=== PATIENT | female | born 1950 | race Caucasian/White ===

== ENCOUNTER → 2018-04-02 | Outpatient (CLI) | payer MEDICARE ==
--- NOTE | 2018-04-02 16:55 | US ---
EXAMINATION TYPE: US venous doppler duplex LE BI DATE OF EXAM: 04/02/2018 4:46 PM COMPARISON: NONE CLINICAL HISTORY: Edema R60.0. SIDE PERFORMED: Bilateral TECHNIQUE: The lower extremity deep venous system is examined utilizing real time linear array sonog johnson with graded compression, doppler sonography and color-flow sonography. VESSELS IMAGED: External Iliac Vein (EIV) Common Femoral Vein Deep Femoral Vein Greater Saphenous Vein * Femoral Vein Popliteal Vein Small Saphenous Vein * Proximal Calf Veins-unable to visualize (* superficial vessels) Patient unable to move her legs in any way to help examiner, extensive swelling, technically difficul t exam Right Leg: Negative for DVT Left Leg: Negative for DVT Grayscale, color doppler, spectral doppler imaging performed of the deep veins of the bilateral lowe r extremities. There is normal flow, compressibility, vascular waveforms. IMPRESSION: Suboptimal study without convincing evidence for acute DVT in either lower extremity.
== END | disposition home or self-care (01) ==
LOC: LABWHC1 16:00
PROVIDERS: ATTEND Family Medicine
DX: R60.0 Localized edema (principal)
CPT/HCPCS: 93970

== ENCOUNTER → 2018-07-12 | Outpatient (CLI) | payer MEDICARE ==
[~2018-07-12] MED LIST: SODIUM CHLORIDE 0.9% 500 ML in EMPTY BAG 1 BAG IV PRN
[2018-07-12 14:04] VITALS: BP 158/90; PULSE 109; RESP 18; TEMP 98.3
== END | disposition home or self-care (01) ==
LOC: PROCWHC3 13:55
PROVIDERS: ATTEND Psychiatry & Neurology Neurology
DX: G35 Multiple sclerosis (principal)
CPT/HCPCS: 96365; J2930

== ENCOUNTER → 2018-07-27 | Outpatient (CLI) | payer MEDICARE ==
--- NOTE | 2018-07-27 17:20 | MR ---
EXAMINATION TYPE: MR brain/cspine wo/w DATE OF EXAM: 07/27/2018 COMPARISON: Prior MR cervical spine 05/31/2010 HISTORY: Multiple sclerosis TECHNIQUE: Multiplanar, multisequence images of the brain and brainstem, cervical spine is performed without and with IV contrast, utilizing 6 mL intravenous Gadavist . FINDINGS: Diffusion weighted images demonstrate no evidence of a recent infarct or other diffusion ab normality. There is no extra-axial fluid collection. Extensive confluent and scattered hyperintensit ies are present on inversion recovery T2-weighted sequences in the pericallosal, periventricular, zee p white matter, appearance of Wong's fingers noted. There are approximately 30-40 lesions. The vent ricular system and cisternal spaces are normal in size and appearance. The brain volume is age appro priate. Midline structures demonstrate normal morphology. The craniocervical junction appears within normal limits. Post contrast images demonstrate no abnormal enhancement, there is motion on the exam. The d ural venous sinuses appear patent. The visualized sinuses are remarkable for inflammatory change in t he ethmoid air cells and the globes are intact. IMPRESSION: Findings compatible with patient's history of multiple sclerosis. Cervical spine MRI: Multilevel spondylosis is again noted with associated loss of disc height signal greatest at C4-5, C5-6 and C6-7, there is endplate discogenic marrow signal change. Cervical cord sig nal is maintained. Cervical vertebral bodies show preserved height and alignment. C2-3: Small posterior broad-based disc bulge causes slight anterior mass effect on the thecal sac. No significant foraminal encroachment or central stenosis. C3-4: Posterior extension of endplate disc complex causes minimal anterior mass effect on the thecal sac. Lateral extension of endplate disc complex causes foraminal encroachment greater on the right. N o central stenosis. C4-5: Posterior extension endplate disc complex causes mild anterior mass effect on the thecal sac. L ateral extension of endplate disc complex causes some foraminal encroachment greater on the right. No significant central stenosis C5-6: Posterior extension endplate disc complex causes mild central canal stenosis. Lateral extension of endplate disc complex causes some mild foraminal encroachment. C6-7: Posterior extension endplate disc complex contacts anterior cervical cord. Lateral extension en dplate disc complex causes some foraminal encroachment greater on the left. C7-T1: Within normal limits. IMPRESSION: Degenerative disc disease similar to prior exam.
== END | disposition home or self-care (01) ==
LOC: RADMRIMAIN 12:08
PROVIDERS: ATTEND Psychiatry & Neurology Neurology
DX: M50.30 Other cervical disc degeneration, unspecified cervical region (principal); G35 Multiple sclerosis
CPT/HCPCS: 70553; 72156; A9581

== ENCOUNTER → 2018-07-28 | Outpatient (CLI) | payer MEDICARE ==
--- NOTE | 2018-07-28 14:27 | MR ---
Thoracic spine MRI HISTORY: Multiple sclerosis Multiplanar, multisequence and postcontrast images following 6 cc Gadavist IV performed through the t horacic spine. Comparison MRI cervical spine 07/27/2018 Thoracic cord signal is normal. There is no evident spinal stenosis, foraminal encroachment, or sizab le disc herniation. Thoracic vertebral bodies show preserved height and alignment. There is multileve l spondylosis with endplate discogenic marrow signal change. Mild loss of disc height signal compatib le disc desiccation and degenerative disc disease. There is no abnormal enhancement following contrast administration. Mild spinal curvature is noted. IMPRESSION: No signal changes within the thoracic cord are evident. Mild degenerative disc disease.
== END ==
LOC: RADMRIMAIN 12:07
PROVIDERS: ATTEND Psychiatry & Neurology Neurology
DX: M51.34 Other intervertebral disc degeneration, thoracic region (principal); G35 Multiple sclerosis
CPT/HCPCS: 72157; A9581

== ENCOUNTER → 2020-09-12 | Outpatient (CLI) | payer MEDICARE ==
--- NOTE | 2020-09-12 15:31 | MR ---
EXAMINATION TYPE: MR brain wo/w con DATE OF EXAM: 09/12/2020 COMPARISON: Prior MRI brain July 27, 2018 HISTORY: MS follow up TECHNIQUE: Multiplanar, multisequence images of the brain and brainstem is performed without and with IV contras t, utilizing 7 mL intravenous Gadavist gadolinium contrast is administered intravenously. Demyelinat ing disease protocol with additional Sagittal Flair sequence performed. FINDINGS: T2 Lesions Present : Yes Approximate Number of Lesions: Difficult to accurately count due to confluent appearance Locations Identified : Greatest confluent appearance periventricular region Size of Reference Lesion(s): 1. Stable ovoid 1.4 x 1.4 x 1.3 cm lesion in right frontal periventricular region on axial image 20 a nd sagittal image 23 2. Stable 2.0 x 1.6 x 1.4 cm deep left parietal lesion on axial image 21 and sagittal image 13 Enhancing Lesion(s) Present: No T1 Hypointense Lesion(s) Present: Yes Change from Prior: Stable Diffusion weighted images demonstrate no evidence of a recent infarct or other diffusion abnormality. There is no worrisome extra-axial fluid collection. The ventricular system and cisternal spaces ar e normal in size and appearance. The brain volume is age appropriate. Midline structures demonstrate normal morphology. The craniocervical junction appears within normal limits. Post contrast images demonstrate no abnormal enhancement. The dural venous sinuses appear pa tent. [id number] mucosal thickening involving the ethmoid sinuses left greater than right redem onstrated otherwise the visualized sinuses are clear and the globes are intact. IMPRESSION: Fairly severe white matter changes redemonstrated likely on basis of patient's known mult iple sclerosis. No new or enhancing lesions are present.
== END | disposition home or self-care (01) ==
LOC: RADMRIMAIN 14:02
PROVIDERS: ATTEND Psychiatry & Neurology Neurology
DX: G35 Multiple sclerosis (principal)
CPT/HCPCS: 70553; A9585

== ENCOUNTER 2021-03-08 18:00 | Inpatient (IN) | payer MEDICARE ==
[2021-03-08] MEDS ORDERED: SODIUM CHLORIDE 0.9% 1,000 ML IV STA (18:32)
[2021-03-08] MEDS ORDERED: ACETAMINOPHEN TAB 500 MG TAB PO STA (18:48)
--- NOTE | 2021-03-08 18:50 | ED ---
General Adult HPI - General Chief complaint: Weakness Stated complaint: weakness/ams Time Seen by Provider: 03/08/21 18:29 Source: patient, EMS, RN notes reviewed, old records reviewed Mode of arrival: EMS Limitations: no limitations - History of Present Illness Initial comments: 70-year-old female presenting with 4 weeks of fatigue and generalized weakness. She states she did receive her second coronavirus vaccine and has felt this way since then. Upon arrival patient is febrile to 102.9. She complains of a productive cough with clear sputum. No abdominal pain. No vomiting or diarrhea. No dysuria or hematuria. She states she has not been eating or drinking well. - Related Data Home Medications Medication Instructions Recorded Confirmed Amphetamine Sulfate [Evekeo] 10 mg PO DAILY 07/12/18 07/12/18 Baclofen [Lioresal] 20 mg PO TID 07/12/18 07/12/18 Biotin 10,000 mcg PO DAILY 07/12/18 07/12/18 Cranberry Fruit Extract [Cranberry] 4,200 mg PO DAILY 07/12/18 07/12/18 Ergocalciferol [Vitamin D2 5,000 units PO DIRECTED 07/12/18 07/12/18 (DRISDOL)] FLUoxetine HCL [PROzac] 20 mg PO BID 07/12/18 07/12/18 Furosemide [Lasix] 20 mg PO DAILY 07/12/18 07/12/18 Lysine [l-Lysine] 500 mg PO DAILY 07/12/18 07/12/18 Multivit-Min/FA/Lycopen/Lutein 1 each PO DAILY 07/12/18 07/12/18 [Centrum Silver Tablet] Omeprazole [PriLOSEC] 20 mg PO AC-BRKFST 07/12/18 07/12/18 Ondansetron [Zofran] 4 mg PO Q12HR PRN 07/12/18 07/12/18 Polyethylene Glycol 3350 [Clearlax] 17 gm PO DIRECTED 07/12/18 07/12/18 Rebif 44 mg PO DIRECTED 07/12/18 07/12/18 Allergies Allergy/AdvReac Type Severity Reaction Status Date / Time No Known Allergies Allergy Verified 07/12/18 13:59 Review of Systems ROS Statement: Those systems with pertinent positive or pertinent negative responses have been documented in the HPI. ROS Other: All systems not noted in ROS Statement are negative. Past Medical History Additional Past Medical History / Comment(s): MS Past Surgical History: No Surgical Hx Reported Past Psychological History: No Psychological Hx Reported Smoking Status: Never smoker Past Alcohol Use History: None Reported Past Drug Use History: None Reported General Exam Limitations: no limitations General appearance: alert, in no apparent distress Head exam: Present: atraumatic, normocephalic Eye exam: Present: normal appearance, PERRL ENT exam: Present: mucous membranes dry Neck exam: Present: normal inspection. Absent: tenderness, meningismus Respiratory exam: Present: rhonchi. Absent: respiratory distress, wheezes Cardiovascular Exam: Present: normal rhythm, bradycardia GI/Abdominal exam: Present: soft. Absent: distended, tenderness, guarding, rebound Extremities exam: Present: normal inspection, normal capillary refill. Absent: pedal edema, calf tenderness Neurological exam: Present: alert, oriented X3, CN II-XII intact. Absent: motor sensory deficit Psychiatric exam: Present: normal affect, normal mood Skin exam: Present: warm, dry, intact. Absent: cyanosis, diaphoretic Course Vital Signs 03/08/21 03/08/21 18:10 20:25 Temperature 102.9 F H 101.7 F H Pulse Rate 48 L Respiratory 20 Rate Blood Pressure 148/68 O2 Sat by Pulse 95 Oximetry EKG Findings - EKG Comments: EKG Findings:: EKG: Wide complex rhythm, suspect complete heart block rate of 47, very poor baseline making interpretation difficult QRS duration 132, QTC 447. Repeat EKG obtained at 2031 with significantly improved baseline showing a complete heart block, rate of 44, QRS 122, QTC 461, wide-complex with T-wave inversion in the precordial leads. Medical Decision Making - Medical Decision Making 70-year-old female presenting for evaluation generalized weakness, cough, fever. Patient has been vaccinated against coronavirus and received her second dose 4 weeks ago. She does test positive in the emergency department. X-ray showing pneumonia and given the time course 3 is concern for a superimposed bacterial pneumonia, antibiotics are initiated. She has a normal white blood cell count, hemoglobin is stable. She has a hyponatremia with a sodium of 126. Her troponin is elevated 0.125. EKG shows a complete heart block. I did discuss case with the admitting physician Dr. Resendiz, the pulmonary branch credit counselor Dr. Rosales and the blender / cook Dr. Boudreaux, who does recommend initiating dopamine, as well as heparin. Patient is given aspirin. He'll be admitted to the ICU for close monitoring. . - Lab Data Result diagrams: 03/08/21 18:43 03/08/21 18:43 Lab Results 03/08/21 03/08/21 03/08/21 Range/Units 18:43 18:43 18:43 WBC 5.0 (3.8-10.6) k/uL RBC 3.69 L (3.80-5.40) m/uL Hgb 11.5 (11.4-16.0) gm/dL Hct 34.0 (34.0-46.0) % MCV 91.9 (80.0-100.0) fL MCH 31.1 (25.0-35.0) pg MCHC 33.9 (31.0-37.0) g/dL RDW 13.1 (11.5-15.5) % Plt Count 158 (150-450) k/uL MPV 7.6 Neutrophils % 84 % Lymphocytes % 8 % Monocytes % 7 % Eosinophils % 0 % Basophils % 0 % Neutrophils # 4.2 (1.3-7.7) k/uL Lymphocytes # 0.4 L (1.0-4.8) k/uL Monocytes # 0.4 (0-1.0) k/uL Eosinophils # 0.0 (0-0.7) k/uL Basophils # 0.0 (0-0.2) k/uL PT 9.7 (9.0-12.0) sec INR 0.9 (<1.2) APTT 21.9 L (22.0-30.0) sec Sodium 126 L (137-145) mmol/L Potassium 4.6 (3.5-5.1) mmol/L Chloride 95 L (98-107) mmol/L Carbon Dioxide 23 (22-30) mmol/L Anion Gap 8 mmol/L BUN 25 H (7-17) mg/dL Creatinine 0.54 (0.52-1.04) mg/dL Est GFR (CKD-EPI)AfAm >90 (>60 ml/min/1.73 sqM) Est GFR (CKD-EPI)NonAf >90 (>60 ml/min/1.73 sqM) Glucose 105 H (74-99) mg/dL Plasma Lactic Acid Carlos (0.7-2.0) mmol/L Calcium 8.2 L (8.4-10.2) mg/dL Magnesium 1.6 (1.6-2.3) mg/dL Total Bilirubin 0.3 (0.2-1.3) mg/dL AST 50 H (14-36) U/L ALT 18 (4-34) U/L Alkaline Phosphatase 79 (38-126) U/L Troponin I (0.000-0.034) ng/mL Total Protein 5.6 L (6.3-8.2) g/dL Albumin 3.1 L (3.5-5.0) g/dL Influenza Type A (PCR) (Not Detectd) Influenza Type B (PCR) (Not Detectd) RSV (PCR) (Not Detectd) SARS-CoV-2 (PCR) (Not Detectd) 03/08/21 03/08/21 03/08/21 Range/Units 18:43 18:43 19:30 WBC (3.8-10.6) k/uL RBC (3.80-5.40) m/uL Hgb (11.4-16.0) gm/dL Hct (34.0-46.0) % MCV (80.0-100.0) fL MCH (25.0-35.0) pg MCHC (31.0-37.0) g/dL RDW (11.5-15.5) % Plt Count (150-450) k/uL MPV Neutrophils % % Lymphocytes % % Monocytes % % Eosinophils % % Basophils % % Neutrophils # (1.3-7.7) k/uL Lymphocytes # (1.0-4.8) k/uL Monocytes # (0-1.0) k/uL Eosinophils # (0-0.7) k/uL Basophils # (0-0.2) k/uL PT (9.0-12.0) sec INR (<1.2) APTT (22.0-30.0) sec Sodium (137-145) mmol/L Potassium (3.5-5.1) mmol/L Chloride (98-107) mmol/L Carbon Dioxide (22-30) mmol/L Anion Gap mmol/L BUN (7-17) mg/dL Creatinine (0.52-1.04) mg/dL Est GFR (CKD-EPI)AfAm (>60 ml/min/1.73 sqM) Est GFR (CKD-EPI)NonAf (>60 ml/min/1.73 sqM) Glucose (74-99) mg/dL Plasma Lactic Acid Carlos 1.0 (0.7-2.0) mmol/L Calcium (8.4-10.2) mg/dL Magnesium (1.6-2.3) mg/dL Total Bilirubin (0.2-1.3) mg/dL AST (14-36) U/L ALT (4-34) U/L Alkaline Phosphatase (38-126) U/L Troponin I 0.120 H* (0.000-0.034) ng/mL Total Protein (6.3-8.2) g/dL Albumin (3.5-5.0) g/dL Influenza Type A (PCR) Not Detected (Not Detectd) Influenza Type B (PCR) Not Detected (Not Detectd) RSV (PCR) Not Detected (Not Detectd) SARS-CoV-2 (PCR) Detected A (Not Detectd) Critical Care Time Critical Care Time: Yes Total Critical Care Time: 35 Disposition Clinical Impression: Dehydration, Hyponatremia, Pneumonia, COVID-19, Complete heart block Disposition: HOME SELF-CARE Condition: Serious Is patient prescribed a controlled substance at d/c from ED?: No Referrals: Rome Cook DO [Primary Care Provider] - 1-2 days Decision to Admit Reason: Admit from EC Decision Date: 03/08/21 Decision Time: 21:06
[2021-03-08 19:09] LABS: Basophils % (A) 0 %; Eosinophils % (A) 0 %; HGB 11.5 gm/dL (11.4-16.0); Lymphocytes # (A) 0.4 k/uL (1.0-4.8); Lymphocytes % (A) 8 %; MCH 31.1 pg (25.0-35.0); MCHC 33.9 g/dL (31.0-37.0); MCV 91.9 fL (80.0-100.0); Mean Platelet Volume 7.6; Monocytes # (A) 0.4 k/uL (0-1.0); Monocytes % (A) 7 %; Neutrophils # (A) 4.2 k/uL (1.3-7.7); Neutrophils % (A) 84 %; Platelet Count 158 k/uL (150-450); RBC 3.69 m/uL (3.80-5.40); RDW 13.1 % (11.5-15.5)
[2021-03-08 19:13] LABS: ALT 18 U/L (4-34); AST 50 U/L (14-36); African American GFR (CKD) >90 (>60 ml/min/1.73 sqM); Albumin 3.1 g/dL (3.5-5.0); Alkaline Phosphatase 79 U/L (38-126); Anion Gap 8 mmol/L; Blood Urea Nitrogen 25 mg/dL (7-17); Calcium 8.2 mg/dL (8.4-10.2); Carbon Dioxide 23 mmol/L (22-30); Chloride 95 mmol/L (98-107); Glucose 105 mg/dL (74-99); Magnesium 1.6 mg/dL (1.6-2.3); Non-African American GFR(CKD) >90 (>60 ml/min/1.73 sqM); Potassium 4.6 mmol/L (3.5-5.1); Sodium 126 mmol/L (137-145); Total Bilirubin 0.3 mg/dL (0.2-1.3); Total Protein 5.6 g/dL (6.3-8.2)
--- NOTE | 2021-03-08 19:34 | XR ---
EXAMINATION TYPE: XR chest 2V DATE OF EXAM: 03/08/2021 COMPARISON: NONE HISTORY: Weakness TECHNIQUE: 2 views FINDINGS: There is no heart failure.. Costophrenic angles are clear. There is some coarsening of inte rstitial markings in the lower lobes. There are chest leads. There is There is some mild airspace infiltrate behind the heart in the left lower lobe. IMPRESSION: Mild left lower lobe pneumonia. Normal heart. No heart failure.
[2021-03-08 19:42] LABS: INR 0.9 (<1.2)
[2021-03-08 19:43] LABS: Partial Thromboplastin Time 21.9 sec (22.0-30.0); Prothrombin Time 9.7 sec (9.0-12.0)
[2021-03-08] MEDS ORDERED: AZITHROMYCIN 500 MG in SODIUM CHLORIDE 0.9% 250 ML IVPB STA (19:54)
[2021-03-08] MEDS ORDERED: cefTRIAXone IN SWFI 1,000 MG/10 ML SYRINGE IVP STA (19:54)
[2021-03-08] MEDS ORDERED: ASPIRIN 325 MG TAB PO STA (20:38)
[2021-03-08] MEDS ORDERED: HEPARIN SODIUM 1,000 UN/ML (10ML VL) IV ONE (20:44)
[2021-03-08] MEDS ORDERED: DOPamine DRIP 800 MG in DEXTROSE/WATER 1 250ML.BAG IV ONE (20:44)
[2021-03-08] MEDS ORDERED: HEPARIN SODIUM 1,000 UN/ML (10ML VL) IV PRN (20:44)
[2021-03-08] MEDS ORDERED: NALOXONE 0.4 MG/ML 1 ML VIAL IV PRN (20:45)
[2021-03-08] MEDS ORDERED: ACETAMINOPHEN TAB 325 MG TAB PO PRN (20:45)
[2021-03-08] MEDS: SODIUM CHLORIDE 0.9% 1,000 ML IV SCH (20:58)
[2021-03-08] MEDS: HEPARIN SOD,PORK IN 0.45% NACL 25,000 UNIT in 0.45% NACL 1 250ML.BAG IV SCH (21:45)
[2021-03-08 22:25] LABS: Glucose,Whole Blood 116 mg/dL (75-99)
[2021-03-08] MEDS: PANTOPRAZOLE 40 MG/10 ML VIAL IV SCH (23:00)
[2021-03-08 23:56] LABS: Appearance,Urine Clear (Clear); Bilirubin,Urine Negative (Negative); Blood,Urine Negative (Negative); Color,Urine Yellow; Glucose,Urine (UA) Negative (Negative); Ketones,Urine 1+ (Negative); Leukocyte Esterase,Urine Negative (Negative); Mucus,Urine Rare /hpf; Nitrite,Urine Negative (Negative); PH, Urine 5.5 (5.0-8.0); Protein,Urine 1+ (Negative); RBC,Urine 1 /hpf (0-5); Squamous Epithelial Cell,Urine <1 /hpf (0-4); Urobilinogen,Urine <2.0 mg/dL (<2.0); WBC,Urine 1 /hpf (0-5)
[2021-03-09] MEDS: MAGNESIUM SULFATE-D5W PMX 1 GM in DEXTROSE/WATER 1 100ML.BAG IVPB SCH ×2 (00:31→01:41)
[2021-03-09 04:41] LABS: Basophils % (A) 0 %; Eosinophils # (A) 0.1 k/uL (0-0.7); Eosinophils % (A) 2 %; HCT 34.8 % (34.0-46.0); HGB 12.2 gm/dL (11.4-16.0); Lymphocytes # (A) 0.6 k/uL (1.0-4.8); Lymphocytes % (A) 11 %; MCH 32.5 pg (25.0-35.0); MCV 92.7 fL (80.0-100.0); Mean Platelet Volume 7.4; Monocytes # (A) 0.3 k/uL (0-1.0); Monocytes % (A) 6 %; Neutrophils # (A) 4.1 k/uL (1.3-7.7); Neutrophils % (A) 80 %; Platelet Count 146 k/uL (150-450); RBC 3.76 m/uL (3.80-5.40); RDW 12.5 % (11.5-15.5); WBC 5.1 k/uL (3.8-10.6)
[2021-03-09 05:11] LABS: African American GFR (CKD) >90 (>60 ml/min/1.73 sqM); Anion Gap 6 mmol/L; Blood Urea Nitrogen 18 mg/dL (7-17); C Reactive Protein 6.4 mg/dL (<1.0); Carbon Dioxide 24 mmol/L (22-30); Chloride 103 mmol/L (98-107); Glucose 112 mg/dL (74-99); LDH 878 U/L (313-618); Magnesium 2.5 mg/dL (1.6-2.3); Non-African American GFR(CKD) >90 (>60 ml/min/1.73 sqM); Sodium 133 mmol/L (137-145)
[2021-03-09 05:12] LABS: D-Dimer 0.29 mg/L FEU (<0.60); INR 0.9 (<1.2)
[2021-03-09] MEDS ORDERED: POTASSIUM CHLORIDE ER 20 MEQ TAB.ER PO STA (05:34)
[2021-03-09] MEDS: SODIUM CHLORIDE 0.9% 1,000 ML IV SCH ×3 (05:54→21:02)
[2021-03-09 06:08] LABS: T4, Free (Free Thyroxine) 1.28 ng/dL (0.78-2.19)
--- NOTE | 2021-03-09 07:34 | CONS ---
CONSULTATION This is a 70-year-old lady without significant past medical history other than probably multiple sclerosis, which seems to also be mild based on the history and the chart that I have reviewed. She came in with nearly 3-4 weeks of fatigue and generalized weakness. She apparently has taken her 2nd dose of soto virus vaccine probably a week ago. When she came in, she was febrile at 102.9 with a productive cough. Sputum apparently was clear. While she was here in the hospital, she was found to have a heart rate of about 42 beats per minute and there is a question of AV block. I am seeing her in this regard. She does have a left lower lobe pneumonia as well. She has underlying right bundle branch block pattern with a QRS interval of about 124 milliseconds. She is at the time of my evaluation, which I did only at the door and I did not do a full physical examination at all. She is in sinus rhythm with what seems to be a second-degree heart block, Wenckebach with a gradually prolonging p.r.n. interval and some PACs. She has underlying nonspecific IVCD of RBBB type with some repolarization abnormality. Heart rate is about 40s. Patient appears to be hemodynamically stable. The last heart rate when I saw her was about 48 beats per minute. She is hemodynamically stable with a blood pressure of about 140/70. PAST MEDICAL HISTORY: This is remarkable for multiple sclerosis, details are unclear. She has no evidence of any significant surgical history on the chart. She is not a smoker. MEDICATIONS: Medications at home include: Zofran, Prilosec, and she also takes some baclofen and Lasix 20 mg daily. ALLERGIES: None. Please review the physical exam from the critical care note. IMPRESSION: 1. Second-degree heart block, probably Wenckebach with a QRS that is mildly increased. 2. Left lower lobe pneumonia. 3. Status post second dose of Covid vaccine a week or so ago. RECOMMENDATIONS: From a cardiac standpoint, I would not recommend any intervention. We will continue to monitor and observe. Obtain a thyroid function test level as well and echocardiogram. No intervention is necessary for her heart rate at this time, but we will continue to monitor closely. If she demonstrates a high-grade AV block, we will consider pacemaker, but for now, no intervention is necessary. MMODL / IJN: [id number] /
--- NOTE | 2021-03-09 08:15 | P.CNPUL ---
History of Present Illness Consult date: 03/09/21 Requesting physician: Patrick Resendiz Reason for consult: other (Critical care management) Chief complaint: Weakness, dehydration History of present illness: This is a very pleasant 70-year-old female patient who follows with Dr. Cook as her primary care provider. She has a history of multiple sclerosis, hypertension, depression. She presented to the emergency room yesterday after a 3-4 week history of generalized weakness and fatigue. She received her second dose of the soto virus vaccine approximately at that same time and has not felt well since. She presented to the emergency room with a temperature 102.9. Productive cough of clear sputum. No nausea, vomiting or diarrhea. She does states her appetite has been poor. She states she generally can't swallow well. Feeds herself. She is quite limited mobility fierro. Mainly is from bed to recliner only at home. She has caregivers that come to the house twice a day. She has a son who lives with her. X-ray does show coarse interstitial markings bilaterally with some mild airspace infiltrate in the left lower lobe. White count 5.1. Hemoglobin 12.2. Platelet count 146. Lymphocytes 0.6. D-dimer 0.29. Sodium 133. Potassium 4.0. Creatinine 0.53. Troponin 0.120. LDH 874. C-reactive protein 6.4. TSH 0.675. Free T4 1 0.28. Soto virus positive. EKG reveals evidence of complete heart block with anterolateral ischemia. Jugular rate mainly in the 40s and low 50s. He was initiated on a dopamine drip at 5 mcg/kg/m. Heparin drip per weight base protocol. 0.9 normal saline at 130 ML's per hour. She received ceftriaxone and azithromycin 1 yesterday. She is seen today in consultation in the intensive care unit. She is currently awake and alert in no acute distress. She denies any worsening shortness of breath, cough or congestion. She denies any chest pain. She expresses desire to be a DO NOT RESUSCITATE/DO NOT INTUBATE CODE STATUS. She also is requesting to be home as soon as possible. She is currently afebrile. Echocardiogram pending. Review of Systems REVIEW OF SYSTEMS: CONSTITUTIONAL: Positive for weakness, fatigue, dehydration and a febrile illness. EYES: Denies change in vision. EARS, NOSE, MOUTH, THROAT: Denies headaches, denies sore throat. CARDIOVASCULAR: Denies chest pain, palpitations or syncopal episodes. RESPIRATORY: Suggestive for shortness of breath, cough, congestion no hemoptysis. GASTROINTESTINAL: Denies change in appetite, denies abdominal pain GENITOURINARY: Denies hematuria, denies infections. MUSKULOSKELETAL: Denies pain, denies swelling. INTEGUMENTARY: Denies rash, denies eczema. NEUROLOGICAL: Denies recent memory loss, no recent seizure activity. PSYCHIATRIC: Denies anxiety, denies depression. HEMATOLOGIC/LYMPHATIC: Denies anemia, denies enlarged lymph nodes. Past Medical History Additional Past Medical History / Comment(s): MS, Pt. states she broke her L arm approximately 2 yrs ago R/T fall and broke L foot approximately R/T 5 years ago History of Any Multi-Drug Resistant Organisms: None Reported Past Surgical History: No Surgical Hx Reported Past Anesthesia/Blood Transfusion Reactions: No Reported Reaction Past Psychological History: No Psychological Hx Reported Smoking Status: Never smoker Past Alcohol Use History: None Reported Past Drug Use History: None Reported Medications and Allergies Home Medications Medication Instructions Recorded Confirmed Type FLUoxetine HCL [PROzac] 20 mg PO DAILY 07/12/18 03/08/21 History Furosemide [Lasix] 20 mg PO DAILY 07/12/18 03/08/21 History Polyethylene Glycol 3350 [Clearlax] 17 gm PO DAILY PRN 07/12/18 03/08/21 History Baclofen 20 mg PO HS PRN 03/08/21 03/08/21 History Baclofen [Lioresal] 10 mg PO BID@0700,1200 PRN 03/08/21 03/08/21 History Biotin 5,000 mcg PO DAILY 03/08/21 03/08/21 History Cholecalciferol (Vitamin D3) 125 mcg PO MOWEFR 03/08/21 03/08/21 History [Vitamin D3 (5000 Iu)] Dextroamphetamine/Amphetamine 10 mg PO DAILY PRN 03/08/21 03/08/21 History [Adderall] Docusate [Colace] 100 mg PO DAILY 03/08/21 03/08/21 History Irbesartan [Avapro] 75 mg PO DAILY 03/08/21 03/08/21 History NIFEdipine [NIFEdipine ER] 30 mg PO DAILY 03/08/21 03/08/21 History rOPINIRole HCL [Requip] 0.25 - 0.5 mg PO HS PRN 03/08/21 03/08/21 History Allergies Allergy/AdvReac Type Severity Reaction Status Date / Time No Known Allergies Allergy Verified 03/08/21 21:02 Physical Exam Vitals: Vital Signs Temp Pulse Pulse Resp BP Pulse Ox 03/09/21 07:00 51 L 13 144/70 94 L 03/09/21 06:30 50 L 22 144/68 94 L 03/09/21 06:00 50 L 16 148/70 95 03/09/21 05:30 47 L 18 147/63 96 03/09/21 05:00 46 L 19 146/57 95 03/09/21 04:30 45 L 18 140/65 96 03/09/21 04:00 43 L 16 142/73 94 L 03/09/21 03:30 42 L 17 136/58 92 L 03/09/21 03:00 41 L 15 129/64 93 L 03/09/21 02:30 39 L 21 143/62 94 L 03/09/21 02:00 41 L 17 142/66 94 L 03/09/21 01:30 42 L 16 146/65 94 L 03/09/21 01:00 42 L 20 130/73 94 L 03/09/21 00:30 39 L 12 136/63 94 L 03/09/21 00:00 42 L 20 132/58 94 L 03/08/21 23:30 41 L 17 129/63 95 03/08/21 23:00 98.4 F 46 L 20 139/66 95 03/08/21 21:50 100.8 F H 43 L 20 136/60 96 03/08/21 20:59 42 L 20 135/59 98 03/08/21 20:25 101.7 F H 03/08/21 20:00 44 L 20 148/65 98 03/08/21 19:00 44 L 18 145/62 95 03/08/21 18:20 42 L 20 03/08/21 18:10 102.9 F H 48 L 20 148/68 95 Intake and Output 03/08/21 03/09/21 03/09/21 22:59 06:59 14:59 Intake Total 1433.217 130 Output Total 1950 85 Balance -516.783 45 Intake: IV 1360 130 Azithromycin 500 mg In 250 Sodium Chloride 0.9% 250 ml @ 250 mls/hr IVPB ONCE [facility] Rx#:[id number] Magnesium Sulfate-D5w Pmx 200 1 gm In Dextrose/Water 1 100ml.bag @ 100 mls/hr IVPB Q1H [facility] Rx#: [id number] Sodium Chloride 0.9% 1, 910 130 000 ml @ 130 mls/hr IV . Q7H42M [facility] Rx#:[id number] Intake, IV Titration 73.217 0 Amount DOPamine DRIP 800 mg In 8.889 Dextrose/Water 1 250ml. bag @ 2.5 MCG/KG/MIN 3. 083 mls/hr IV .Q24H [facility] Rx#:[id number] Heparin Sod,Pork in 0.45% 64.328 0 NaCl 25,000 unit In 0.45 % NaCl 1 250ml.bag @ 12 UNITS/KG/HR 7.893 mls/hr IV .Q24H [facility] Rx#: [id number] Output: Urine 1950 85 Other: Voiding Method Indwelling Catheter Weight 65.771 kg 69.4 kg GENERAL EXAM: Alert, pleasant 70-year-old female patient, weak, debilitated, comfortable in no apparent distress. HEAD: Normocephalic. EYES: Normal reaction of pupils, equal size. NOSE: Clear with pink turbinates. THROAT: No erythema or exudates. NECK: No masses, no JVD. CHEST: No chest wall deformity. LUNGS: Equal air entry with few scattered rhonchi bilaterally. CVS: S1 and S2 normal with no audible murmur, regular rhythm. Bradycardic. ABDOMEN: No hepatosplenomegaly, normal bowel sounds, no guarding or rigidity. SPINE: No scoliosis or deformity SKIN: No rashes CENTRAL NERVOUS SYSTEM: Generalized weakness, motor extremity weakness secondary to multiple sclerosis. No focal deficits, tone is normal in all 4 extremities. EXTREMITIES: There is no peripheral edema. No clubbing, no cyanosis. Peripheral pulses are intact. Results - Laboratory Findings CBC and BMP: 03/09/21 04:13 03/09/21 04:13 PT/INR, D-dimer PT 10.0 sec (9.0-12.0) 03/09/21 04:13 INR 0.9 (<1.2) 03/09/21 04:13 D-Dimer 0.29 mg/L FEU (<0.60) 03/09/21 04:13 Abnormal lab findings: Abnormal Labs 03/08/21 03/08/21 03/08/21 18:43 18:43 18:43 RBC 3.69 L Plt Count Lymphocytes # 0.4 L APTT 21.9 L Sodium 126 L Chloride 95 L BUN 25 H Glucose 105 H POC Glucose (mg/dL) Calcium 8.2 L Magnesium AST 50 H Lactate Dehydrogenase Troponin I C-Reactive Protein Total Protein 5.6 L Albumin 3.1 L Urine Protein Urine Ketones Urine Mucus SARS-CoV-2 (PCR) 03/08/21 03/08/21 03/08/21 18:43 19:30 22:23 RBC Plt Count Lymphocytes # APTT Sodium Chloride BUN Glucose POC Glucose (mg/dL) 116 H Calcium Magnesium AST Lactate Dehydrogenase Troponin I 0.120 H* C-Reactive Protein Total Protein Albumin Urine Protein Urine Ketones Urine Mucus SARS-CoV-2 (PCR) Detected A 03/08/21 03/09/21 03/09/21 23:35 04:13 04:13 RBC 3.76 L Plt Count 146 L Lymphocytes # 0.6 L APTT Sodium 133 L Chloride BUN 18 H Glucose 112 H POC Glucose (mg/dL) Calcium 8.0 L Magnesium 2.5 H AST Lactate Dehydrogenase 878 H Troponin I C-Reactive Protein 6.4 H Total Protein Albumin Urine Protein 1+ H Urine Ketones 1+ H Urine Mucus Rare H SARS-CoV-2 (PCR) 03/09/21 04:13 RBC Plt Count Lymphocytes # APTT 124.0 H* Sodium Chloride BUN Glucose POC Glucose (mg/dL) Calcium Magnesium AST Lactate Dehydrogenase Troponin I C-Reactive Protein Total Protein Albumin Urine Protein Urine Ketones Urine Mucus SARS-CoV-2 (PCR) - Diagnostic Findings Chest x-ray: image reviewed Assessment and Plan Assessment: 1 COVID-19 infection with generalized weakness, fatigue, poor appetite, dehydration 2 Acute hypoxic respiratory failure secondary to COVID-19 pneumonia 3 Complete heart block versus second-degree heart block with bradycardia, currently on dopamine 4 Troponin leak 5 hyponatremia, improving current sodium 133. 6 Elevated inflammatory markers secondary to COVID-19. 7 Multiple sclerosis with limited mobility 8 History of depression 9 Hypertension Plan: The patient was seen and evaluated by Dr. Rosales Chest x-ray, EKG, labs reviewed Add dexamethasone, vitamin supplements Continue heparin drip Echocardiogram pending Follow-up troponin Check a pro-calcitonin Follow-up chest x-ray, inflammatory markers in a.m. We will continue to follow make further recommendations based on her clinical status Time with Patient: Greater than 30
--- NOTE | 2021-03-09 08:28 | XR ---
EXAMINATION TYPE: XR chest 1V DATE OF EXAM: 03/09/2021 COMPARISON: 03/08/2021 INDICATION: Short of breath TECHNIQUE: Single frontal view of the chest is obtained. FINDINGS: The heart size is normal. The pulmonary vasculature is normal. Mild infiltrates present in the right lower lobe. Improving left lower lobe infiltrate is present. IMPRESSION: 1. Improving bibasilar infiltrates. Persistent infiltrate at the right base. Findings can be compatib le with atypical pneumonia.
[2021-03-09] MEDS: PANTOPRAZOLE 40 MG/10 ML VIAL IV SCH (09:33)
[2021-03-09] MEDS: ASCORBIC ACID 500 MG TAB PO SCH (09:34)
[2021-03-09] MEDS: CHOLECALCIFEROL 25 MCG (1000 IU) TABLET PO SCH (09:34)
[2021-03-09] MEDS: DEXAMETHASONE SOD PHOSPHATE 10 MG/ML 1 ML VIAL IV SCH (09:34)
[2021-03-09] MEDS: ZINC SULFATE 220 MG CAP PO SCH (09:34)
[2021-03-09] MEDS ORDERED: NON FORMULARY DRUG (Dextroamphetamine/Amphetamine [Adderall] 10 MG Tablet) PO PRN (09:40)
[2021-03-09] MEDS: FLUoxetine HCL 20 MG CAP PO SCH (12:27)
[2021-03-09] MEDS: BACLOFEN 10 MG TAB PO PRN ×2 (12:27→21:02)
--- NOTE | 2021-03-09 13:54 | ECHOF ---
Referral Reason:Heart block MEASUREMENTS -------- HEIGHT: 167.6 cm WEIGHT: 69.4 kg BP: 148/70 RVIDd: 3.4 cm (< 3.3) IVSd: 1.3 cm (0.6 - 1.1) LVIDd: 5.2 cm (3.9 - 5.3) LVPWd: 1.2 cm (0.6 - 1.1) IVSs: 1.9 cm LVIDs: 4.2 cm LVPWs: 1.7 cm LA Diam: 3.1 cm (2.7 - 3.8) LAESV Index (A-L): 27.00 ml/m Ao Diam: 3.3 cm (2.0 - 3.7) AV Cusp: 2.2 cm (1.5 - 2.6) MV EXCURSION: 17.354 mm (> 18.000) MV EF SLOPE: 168 mm/s (70 - 150) EPSS: 0.5 cm MV E Tuan: 1.46 m/s MV DecT: 130 ms MV A Tuan: 0.95 m/s MV E/A Ratio: 1.54 AV maxP.39 mmHg AV meanP.86 mmHg RAP: 15.00 mmHg RVSP: 47.74 mmHg FINDINGS -------- This was a technically adequate study. The left ventricular size is normal. There is borderline concentric left ventricular hypertrophy. Overall left ventricular systolic function is mild-moderately impaired with, an EF between 40 - 45 % . Mid anteroseptal LV wall motion is hypokinetic. Apical anterior LV wall motion is hypokinetic. Apical septum LV wall motion is hypokinetic. The right ventricle is mildly enlarged. Normal LA size by volume 22+/-6 ml/m2. The right atrium is normal in size. Interatrial and interventricular septum intact. There is mild aortic regurgitation. Mild mitral annular calcification present. Mild mitral regurgitation is present. Mild tricuspid regurgitation present. There is moderate pulmonary hypertension. The right ventric ular systolic pressure, as measured by Doppler, is 47.74mmHg. The pulmonic valve was not well visualized. The aortic root size is normal. Normal inferior vena cava with less than 50% inspiratory collapse consistent with estimated right atr ial pressure of 15 mmHg. CONCLUSIONS -------- 1. The left ventricular size is normal. 2. There is borderline concentric left ventricular hypertrophy. 3. Apical anterior LV wall motion is hypokinetic. 4. Apical septum LV wall motion is hypokinetic. 5. The right ventricle is mildly enlarged. 6. There is mild aortic regurgitation. 7. Mild mitral annular calcification present. 8. Mild mitral regurgitation is present. 9. Mild tricuspid regurgitation present. 10. There is moderate pulmonary hypertension. 11. The right ventricular systolic pressure, as measured by Doppler, is 47.74mmHg. 12. Normal inferior vena cava with less than 50% inspiratory collapse consistent with estimated right atrial pressure of 15 mmHg. GAME PROGRAMMER: Kaylin Ho RDCS
--- NOTE | 2021-03-09 16:53 | P.HPIM ---
History of Present Illness H&P Date: 03/09/21 Chief Complaint: Generalized weakness Ms. Figueroa is a 70-year-old female with a past medical history of multiple sclerosis, hypertension coming into the hospital with a chief complaint of generalized weakness and fatigue. Patient states that she received her second dose of soto virus vaccine 1 month back and since then she continued to have generalized weakness and fatigue. She thought her symptoms would resolve but progressively worsening that she came into the hospital for further evaluation. Patient denies having any fevers chills or rigors. She complains of cough that is productive in nature with clear sputum. She denies having any abdominal pain nausea vomiting or diarrhea. No change in her sense of taste or smell. Patient denies having any dysuria or hematuria. Patient states that she has been not eating or drinking well for the past 3-4 weeks. Patient mentions that she has caregivers at home and her caregiver was tested positive for soto virus. In the ER at the time of admission patient was found to have a fever of 102.9, heart rate of 48, respiratory rate 20, blood pressure 140/68, saturating at 95% on room air. She had a chest x-ray showing coarse interstitial markings bilateral with left lobe infiltrate. Patient had an EKG showing complete heart block with anterolateral ischemia. So the patient was started on dopamine drip and heparin drip and admitted to the ICU. Patient also received 1 dose of ceftriaxone and Zithromax. She is currently being monitored in the ICU. Review of Systems REVIEW OF SYSTEMS: CONSTITUTIONAL: Generalized weakness and fatigue HEENT: No recent visual problems or hearing problems. Denied any sore throat. CARDIOVASCULAR: No chest pain, orthopnea, PND, no palpitations, no syncope. PULMONARY: Mild cough with productive white sputum GASTROINTESTINAL: No diarrhea, no nausea, no vomiting, no abdominal pain. NEUROLOGICAL: No focal weakness, normocephalic consciousness HEMATOLOGICAL: Denies any bleeding or petechiae. GENITOURINARY: Denies any burning micturition, frequency, or urgency. MUSCULOSKELETAL/RHEUMATOLOGICAL: Multiple joint osteoarthritis ENDOCRINE: Denies any polyuria or polydipsia. The rest of the 14-point review of systems is negative Past Medical History Additional Past Medical History / Comment(s): MS, Pt. states she broke her L arm approximately 2 yrs ago R/T fall and broke L foot approximately R/T 5 years ago History of Any Multi-Drug Resistant Organisms: None Reported Past Surgical History: No Surgical Hx Reported Past Anesthesia/Blood Transfusion Reactions: No Reported Reaction Past Psychological History: No Psychological Hx Reported Smoking Status: Never smoker Past Alcohol Use History: None Reported Past Drug Use History: None Reported Medications and Allergies Home Medications Medication Instructions Recorded Confirmed Type FLUoxetine HCL [PROzac] 20 mg PO DAILY 07/12/18 03/08/21 History Furosemide [Lasix] 20 mg PO DAILY 07/12/18 03/08/21 History Polyethylene Glycol 3350 [Clearlax] 17 gm PO DAILY PRN 07/12/18 03/08/21 History Baclofen 20 mg PO HS PRN 03/08/21 03/08/21 History Baclofen [Lioresal] 10 mg PO BID@0700,1200 PRN 03/08/21 03/08/21 History Biotin 5,000 mcg PO DAILY 03/08/21 03/08/21 History Cholecalciferol (Vitamin D3) 125 mcg PO MOWEFR 03/08/21 03/08/21 History [Vitamin D3 (5000 Iu)] Dextroamphetamine/Amphetamine 10 mg PO DAILY PRN 03/08/21 03/08/21 History [Adderall] Docusate [Colace] 100 mg PO DAILY 03/08/21 03/08/21 History Irbesartan [Avapro] 75 mg PO DAILY 03/08/21 03/08/21 History NIFEdipine [NIFEdipine ER] 30 mg PO DAILY 03/08/21 03/08/21 History rOPINIRole HCL [Requip] 0.25 - 0.5 mg PO HS PRN 03/08/21 03/08/21 History Allergies Allergy/AdvReac Type Severity Reaction Status Date / Time No Known Allergies Allergy Verified 03/08/21 21:02 Physical Exam Vitals: Vital Signs Temp Pulse Pulse Resp BP Pulse Ox 03/09/21 15:00 44 L 20 162/74 94 L 03/09/21 14:30 44 L 20 156/69 85 L 03/09/21 14:00 42 L 13 149/69 87 L 03/09/21 13:30 41 L 19 93 L 03/09/21 13:00 46 L 24 150/68 93 L 03/09/21 12:30 44 L 26 H 144/62 92 L 03/09/21 12:00 98.2 F 45 L 15 138/59 91 L 03/09/21 11:30 45 L 11 L 140/61 92 L 03/09/21 11:00 45 L 7 L 140/64 92 L 03/09/21 10:30 46 L 20 146/69 91 L 03/09/21 10:00 47 L 20 148/68 94 L 03/09/21 09:30 47 L 23 140/68 92 L 03/09/21 09:00 46 L 21 136/67 93 L 03/09/21 08:30 48 L 23 140/63 92 L 03/09/21 08:00 98.2 F 49 L 23 130/64 97 03/09/21 07:00 51 L 13 144/70 94 L 03/09/21 06:30 50 L 22 144/68 94 L 03/09/21 06:00 50 L 16 148/70 95 03/09/21 05:30 47 L 18 147/63 96 03/09/21 05:00 46 L 19 146/57 95 03/09/21 04:30 45 L 18 140/65 96 03/09/21 04:00 43 L 16 142/73 94 L 03/09/21 03:30 42 L 17 136/58 92 L 03/09/21 03:00 41 L 15 129/64 93 L 03/09/21 02:30 39 L 21 143/62 94 L 03/09/21 02:00 41 L 17 142/66 94 L 03/09/21 01:30 42 L 16 146/65 94 L 03/09/21 01:00 42 L 20 130/73 94 L 03/09/21 00:30 39 L 12 136/63 94 L 03/09/21 00:00 42 L 20 132/58 94 L 03/08/21 23:30 41 L 17 129/63 95 03/08/21 23:00 98.4 F 46 L 20 139/66 95 03/08/21 21:50 100.8 F H 43 L 20 136/60 96 03/08/21 20:59 42 L 20 135/59 98 03/08/21 20:25 101.7 F H 03/08/21 20:00 44 L 20 148/65 98 03/08/21 19:00 44 L 18 145/62 95 03/08/21 18:20 42 L 20 03/08/21 18:10 102.9 F H 48 L 20 148/68 95 Intake and Output 03/09/21 03/09/21 03/09/21 06:59 14:59 22:59 Intake Total 4618.916 6264 130 Output Total 1950 535 150 Balance -516.783 505 -20 Intake: IV 1360 1040 130 Azithromycin 500 mg In 250 Sodium Chloride 0.9% 250 ml @ 250 mls/hr IVPB ONCE STA Rx#:[id number] Magnesium Sulfate-D5w Pmx 200 1 gm In Dextrose/Water 1 100ml.bag @ 100 mls/hr IVPB Q1H [facility] Rx#: [id number] Sodium Chloride 0.9% 1, 910 1040 130 000 ml @ 130 mls/hr IV . Q7H42M [facility] Rx#:[id number] Intake, IV Titration 73.217 0 Amount DOPamine DRIP 800 mg In 8.889 Dextrose/Water 1 250ml. bag @ 2.5 MCG/KG/MIN 3. 083 mls/hr IV .Q24H [facility] Rx#:[id number] Heparin Sod,Pork in 0.45% 64.328 0 NaCl 25,000 unit In 0.45 % NaCl 1 250ml.bag @ 12 UNITS/KG/HR 7.893 mls/hr IV .Q24H [facility] Rx#: [id number] Output: Urine 1950 535 150 Other: Voiding Method Indwelling Catheter Indwelling Catheter Indwelling Catheter Weight 69.4 kg PHYSICAL EXAMINATION: GENERAL: Elderly female lying in bed appears to be no acute distress. She is currently being monitored in the ICU. HEENT: Pupils are round and equally reacting to light. EOMI. No scleral icterus. No conjunctival pallor. Normocephalic, atraumatic. No pharyngeal erythema. No thyromegaly. CARDIOVASCULAR: Bradycardia. PULMONARY: Bilateral breath sounds are positive. Scattered rhonchi in the lower lung bases ABDOMEN: Soft, nontender, nondistended, normoactive bowel sounds. No palpable organomegaly. MUSCULOSKELETAL: No joint swelling or deformity. EXTREMITIES: No cyanosis, clubbing, or pedal edema. NEUROLOGICAL: Gross neurological examination did not reveal any focal deficits. SKIN: No rashes. Results CBC & Chem 7: 03/09/21 04:13 03/09/21 04:13 Labs: Abnormal Lab Results - Last 24 Hours (Table) 03/08/21 03/08/21 03/08/21 Range/Units 18:43 18:43 18:43 RBC 3.69 L (3.80-5.40) m/uL Plt Count (150-450) k/uL Lymphocytes # 0.4 L (1.0-4.8) k/uL APTT 21.9 L (22.0-30.0) sec Sodium 126 L (137-145) mmol/L Chloride 95 L (98-107) mmol/L BUN 25 H (7-17) mg/dL Glucose 105 H (74-99) mg/dL POC Glucose (mg/dL) (75-99) mg/dL Calcium 8.2 L (8.4-10.2) mg/dL Magnesium (1.6-2.3) mg/dL AST 50 H (14-36) U/L Lactate Dehydrogenase (313-618) U/L Troponin I (0.000-0.034) ng/mL C-Reactive Protein (<1.0) mg/dL Total Protein 5.6 L (6.3-8.2) g/dL Albumin 3.1 L (3.5-5.0) g/dL Procalcitonin (0.02-0.09) ng/mL Urine Protein (Negative) Urine Ketones (Negative) Urine Mucus (None) /hpf SARS-CoV-2 (PCR) (Not Detectd) 03/08/21 03/08/21 03/08/21 Range/Units 18:43 19:30 22:23 RBC (3.80-5.40) m/uL Plt Count (150-450) k/uL Lymphocytes # (1.0-4.8) k/uL APTT (22.0-30.0) sec Sodium (137-145) mmol/L Chloride (98-107) mmol/L BUN (7-17) mg/dL Glucose (74-99) mg/dL POC Glucose (mg/dL) 116 H (75-99) mg/dL Calcium (8.4-10.2) mg/dL Magnesium (1.6-2.3) mg/dL AST (14-36) U/L Lactate Dehydrogenase (313-618) U/L Troponin I 0.120 H* (0.000-0.034) ng/mL C-Reactive Protein (<1.0) mg/dL Total Protein (6.3-8.2) g/dL Albumin (3.5-5.0) g/dL Procalcitonin (0.02-0.09) ng/mL Urine Protein (Negative) Urine Ketones (Negative) Urine Mucus (None) /hpf SARS-CoV-2 (PCR) Detected A (Not Detectd) 03/08/21 03/09/21 03/09/21 Range/Units 23:35 04:13 04:13 RBC 3.76 L (3.80-5.40) m/uL Plt Count 146 L (150-450) k/uL Lymphocytes # 0.6 L (1.0-4.8) k/uL APTT (22.0-30.0) sec Sodium 133 L (137-145) mmol/L Chloride (98-107) mmol/L BUN 18 H (7-17) mg/dL Glucose 112 H (74-99) mg/dL POC Glucose (mg/dL) (75-99) mg/dL Calcium 8.0 L (8.4-10.2) mg/dL Magnesium 2.5 H (1.6-2.3) mg/dL AST (14-36) U/L Lactate Dehydrogenase 878 H (313-618) U/L Troponin I (0.000-0.034) ng/mL C-Reactive Protein 6.4 H (<1.0) mg/dL Total Protein (6.3-8.2) g/dL Albumin (3.5-5.0) g/dL Procalcitonin (0.02-0.09) ng/mL Urine Protein 1+ H (Negative) Urine Ketones 1+ H (Negative) Urine Mucus Rare H (None) /hpf SARS-CoV-2 (PCR) (Not Detectd) 03/09/21 03/09/21 03/09/21 Range/Units 04:13 04:13 04:13 RBC (3.80-5.40) m/uL Plt Count (150-450) k/uL Lymphocytes # (1.0-4.8) k/uL APTT 124.0 H* (22.0-30.0) sec Sodium (137-145) mmol/L Chloride (98-107) mmol/L BUN (7-17) mg/dL Glucose (74-99) mg/dL POC Glucose (mg/dL) (75-99) mg/dL Calcium (8.4-10.2) mg/dL Magnesium (1.6-2.3) mg/dL AST (14-36) U/L Lactate Dehydrogenase (313-618) U/L Troponin I 0.200 H* (0.000-0.034) ng/mL C-Reactive Protein (<1.0) mg/dL Total Protein (6.3-8.2) g/dL Albumin (3.5-5.0) g/dL Procalcitonin 0.12 H (0.02-0.09) ng/mL Urine Protein (Negative) Urine Ketones (Negative) Urine Mucus (None) /hpf SARS-CoV-2 (PCR) (Not Detectd) 03/09/21 Range/Units 13:13 RBC (3.80-5.40) m/uL Plt Count (150-450) k/uL Lymphocytes # (1.0-4.8) k/uL APTT 62.5 H (22.0-30.0) sec Sodium (137-145) mmol/L Chloride (98-107) mmol/L BUN (7-17) mg/dL Glucose (74-99) mg/dL POC Glucose (mg/dL) (75-99) mg/dL Calcium (8.4-10.2) mg/dL Magnesium (1.6-2.3) mg/dL AST (14-36) U/L Lactate Dehydrogenase (313-618) U/L Troponin I (0.000-0.034) ng/mL C-Reactive Protein (<1.0) mg/dL Total Protein (6.3-8.2) g/dL Albumin (3.5-5.0) g/dL Procalcitonin (0.02-0.09) ng/mL Urine Protein (Negative) Urine Ketones (Negative) Urine Mucus (None) /hpf SARS-CoV-2 (PCR) (Not Detectd) Thrombosis Risk Factor Assmnt - Choose All That Apply Any of the Below Risk Factors Present?: No Other Risk Factors: Yes Each Risk Factor Represents 2 Points: Age 61-74 years Other congenital or acquired thrombophilia - If yes, enter type in comment: No Thrombosis Risk Factor Assessment Total Risk Factor Score: 2 Thrombosis Risk Factor Assessment Level: Low Risk Assessment and Plan Assessment: ASSESSMENT Generalized fatigue and weakness secondary to COVID-19 infection Complete heart block versus second-degree heart block Acute hypoxic respiratory failure secondary to COVID-19 pneumonia Elevated troponin Hyponatremia Increased inflammatory markers Multiple sclerosis History of depression with anxiety Hypertension STEPHEN: Patient was started on dexamethasone and multivitamin supplements. She's been started on heparin drip. Cardiology on board. We will continue to follow up on troponins. We will follow up in inflammatory markers and chest x-ray. Continue to monitor patient closely in the ICU setting. Overall prognosis is guarded. Patient's CODE STATUS is DO NOT RESUSCITATE. Further recommendations to follow depending on the progress of the patient.
[2021-03-10 05:06] LABS: Basophils % (A) 0 %; Eosinophils % (A) 0 %; HCT 34.2 % (34.0-46.0); HGB 11.3 gm/dL (11.4-16.0); Lymphocytes # (A) 0.6 k/uL (1.0-4.8); Lymphocytes % (A) 12 %; MCH 30.9 pg (25.0-35.0); MCHC 33.1 g/dL (31.0-37.0); MCV 93.3 fL (80.0-100.0); Mean Platelet Volume 7.3; Monocytes # (A) 0.4 k/uL (0-1.0); Monocytes % (A) 8 %; Neutrophils # (A) 3.6 k/uL (1.3-7.7); Neutrophils % (A) 77 %; Platelet Count 153 k/uL (150-450); RBC 3.67 m/uL (3.80-5.40); RDW 13.2 % (11.5-15.5); WBC 4.6 k/uL (3.8-10.6)
[2021-03-10 05:39] LABS: Potassium 4.4 mmol/L (3.5-5.1)
[2021-03-10 05:42] LABS: ALT 20 U/L (4-34); AST 55 U/L (14-36); African American GFR (CKD) >90 (>60 ml/min/1.73 sqM); Albumin 2.5 g/dL (3.5-5.0); Alkaline Phosphatase 64 U/L (38-126); Anion Gap 5 mmol/L; Blood Urea Nitrogen 13 mg/dL (7-17); C Reactive Protein 6.8 mg/dL (<1.0); Calcium 7.3 mg/dL (8.4-10.2); Carbon Dioxide 19 mmol/L (22-30); Chloride 105 mmol/L (98-107); Glucose 85 mg/dL (74-99); LDH 868 U/L (313-618); Non-African American GFR(CKD) >90 (>60 ml/min/1.73 sqM); Sodium 129 mmol/L (137-145); Total Bilirubin 0.3 mg/dL (0.2-1.3); Total Protein 4.7 g/dL (6.3-8.2)
[2021-03-10] MEDS: PANTOPRAZOLE 40 MG/10 ML VIAL IV SCH (07:43)
[2021-03-10] MEDS: ZINC SULFATE 220 MG CAP PO SCH (07:44)
[2021-03-10] MEDS: DEXAMETHASONE SOD PHOSPHATE 10 MG/ML 1 ML VIAL IV SCH (07:44)
[2021-03-10] MEDS: CHOLECALCIFEROL 25 MCG (1000 IU) TABLET PO SCH (07:44)
[2021-03-10] MEDS: FLUoxetine HCL 20 MG CAP PO SCH (07:44)
[2021-03-10] MEDS: ASCORBIC ACID 500 MG TAB PO SCH (07:44)
[2021-03-10] MEDS: SODIUM CHLORIDE 0.9% 1,000 ML IV SCH ×3 (07:45→20:13)
[2021-03-10] MEDS: BACLOFEN 10 MG TAB PO PRN ×2 (07:50→21:13)
--- NOTE | 2021-03-10 07:51 | P.PN ---
Subjective Progress Note Date: 03/10/21 Principal diagnosis: COVID-19 pneumonia, complete heart block This is a very pleasant 70-year-old female patient who follows with Dr. Cook as her primary care provider. She has a history of multiple sclerosis, hypertension, depression. She presented to the emergency room yesterday after a 3-4 week history of generalized weakness and fatigue. She received her second dose of the bearden virus vaccine approximately at that same time and has not felt well since. She presented to the emergency room with a temperature 102.9. Productive cough of clear sputum. No nausea, vomiting or diarrhea. She does states her appetite has been poor. She states she generally can't swallow well. Feeds herself. She is quite limited mobility fierro. Mainly is from bed to recliner only at home. She has caregivers that come to the house twice a day. She has a son who lives with her. X-ray does show coarse interstitial markings bilaterally with some mild airspace infiltrate in the left lower lobe. White count 5.1. Hemoglobin 12.2. Platelet count 146. Lymphocytes 0.6. D-dimer 0.29. Sodium 133. Potassium 4.0. Creatinine 0.53. Troponin 0.120. LDH 874. C-reactive protein 6.4. TSH 0.675. Free T4 1 0.28. Bearden virus positive. EKG reveals evidence of complete heart block with anterolateral ischemia. Jugular rate mainly in the 40s and low 50s. He was initiated on a dopamine drip at 5 mcg/kg/m. Heparin drip per weight base protocol. 0.9 normal saline at 130 ML's per hour. She received ceftriaxone and azithromycin 1 yesterday. She is seen today in consultation in the intensive care unit. She is currently awake and alert in no acute distress. She denies any worsening shortness of breath, cough or congestion. She denies any chest pain. She expresses desire to be a DO NOT RESUSCITATE/DO NOT INTUBATE CODE STATUS. She also is requesting to be home as soon as possible. She is currently afebrile. Echocardiogram pending. The patient is seen today in 03/10/2021 in follow-up in the intensive care unit. She is currently sitting up in bed. Awake and alert in no acute distress. Currently on 2 L/m per nasal cannula and maintaining O2 saturation in the low 90s. She does desaturate into the 80s once she is off the oxygen. She remains bradycardic in complete heart block alternating with a high degree second-degree block. Heparin drip and dopamine drips are on hold. The plan is for permanent pacemaker implantation later today. She remains on dexamethasone, vitamin supplements. 0.9 normal saline at 50 MLS per hour. Chest x-ray continues to revealed bilateral patchy infiltrates. Blood cultures revealing no growth to date. White count 4.6. Hemoglobin 11.3. Lymphocytes 0.6. Sodium 129. Potassium 4.4. Creatinine 0.41. LDH 868. C-reactive protein 6.8. Echocardiogram reveals mild to moderately impaired left ventricular systolic function with ejection fraction 40-45%. Moderate pulmonary hypertension. Objective - Vital Signs Vital signs: Vital Signs Temp 98.4 F 03/10/21 04:00 Pulse 42 L 03/10/21 07:00 Resp 16 03/10/21 07:00 BP 148/68 03/10/21 07:00 Pulse Ox 94 L 03/10/21 07:00 Intake & Output 03/09/21 03/10/21 03/10/21 18:59 06:59 18:59 Intake Total 1560 1138.838 50 Output Total 810 1545 35 Balance 750 -406.162 15 Weight 77.2 kg Intake: IV 1560 1000 50 Sodium Chloride 0.9% 1, 1560 650 000 ml @ 130 mls/hr IV . Q7H42M [facility]IN Rx#:[id number] Sodium Chloride 0.9% 1, 350 50 000 ml @ 50 mls/hr IV . Q20H COUNT INCLUDES THE [facility] Rx#:[id number] Intake, IV Titration 0 138.838 Amount DOPamine DRIP 800 mg In 138.838 Dextrose/Water 1 250ml. bag @ 2.5 MCG/KG/MIN 3. 083 mls/hr IV .Q24H ONE Rx#:[id number] Heparin Sod,Pork in 0.45% 0 NaCl 25,000 unit In 0.45 % NaCl 1 250ml.bag @ 12 UNITS/KG/HR 7.893 mls/hr IV .Q24H COUNT INCLUDES THE [facility] Rx#: [id number] Output: Urine 810 1545 35 Other: Voiding Method Indwelling Catheter Indwelling Catheter - Exam GENERAL EXAM: Alert, pleasant 70-year-old female patient, weak, debilitated, on 2 L nasal cannula, comfortable in no apparent distress. HEAD: Normocephalic. EYES: Normal reaction of pupils, equal size. NOSE: Clear with pink turbinates. THROAT: No erythema or exudates. NECK: No masses, no JVD. CHEST: No chest wall deformity. LUNGS: Equal air entry with few scattered rhonchi bilaterally. CVS: S1 and S2 normal with no audible murmur, regular rhythm. Bradycardic. ABDOMEN: No hepatosplenomegaly, normal bowel sounds, no guarding or rigidity. SPINE: No scoliosis or deformity SKIN: No rashes CENTRAL NERVOUS SYSTEM: Generalized weakness, motor extremity weakness secondary to multiple sclerosis. No focal deficits, tone is normal in all 4 extremities. EXTREMITIES: There is no peripheral edema. No clubbing, no cyanosis. Peripheral pulses are intact. - Labs CBC & Chem 7: 03/10/21 04:54 03/10/21 04:54 Labs: Abnormal Lab Results - Last 24 Hours (Table) 03/09/21 03/09/21 03/09/21 Range/Units 04:13 04:13 13:13 RBC (3.80-5.40) m/uL Hgb (11.4-16.0) gm/dL Lymphocytes # (1.0-4.8) k/uL APTT 62.5 H (22.0-30.0) sec Sodium (137-145) mmol/L Carbon Dioxide (22-30) mmol/L Creatinine (0.52-1.04) mg/dL Calcium (8.4-10.2) mg/dL AST (14-36) U/L Lactate Dehydrogenase (313-618) U/L Troponin I 0.200 H* (0.000-0.034) ng/mL C-Reactive Protein (<1.0) mg/dL Total Protein (6.3-8.2) g/dL Albumin (3.5-5.0) g/dL Procalcitonin 0.12 H (0.02-0.09) ng/mL 03/10/21 03/10/21 03/10/21 Range/Units 00:11 04:54 04:54 RBC (3.80-5.40) m/uL Hgb (11.4-16.0) gm/dL Lymphocytes # (1.0-4.8) k/uL APTT 63.8 H (22.0-30.0) sec Sodium 129 L (137-145) mmol/L Carbon Dioxide 19 L (22-30) mmol/L Creatinine 0.41 L (0.52-1.04) mg/dL Calcium 7.3 L (8.4-10.2) mg/dL AST 55 H (14-36) U/L Lactate Dehydrogenase 868 H (313-618) U/L Troponin I 0.101 H* (0.000-0.034) ng/mL C-Reactive Protein 6.8 H (<1.0) mg/dL Total Protein 4.7 L (6.3-8.2) g/dL Albumin 2.5 L (3.5-5.0) g/dL Procalcitonin (0.02-0.09) ng/mL 03/10/21 Range/Units 04:54 RBC 3.67 L (3.80-5.40) m/uL Hgb 11.3 L (11.4-16.0) gm/dL Lymphocytes # 0.6 L (1.0-4.8) k/uL APTT (22.0-30.0) sec Sodium (137-145) mmol/L Carbon Dioxide (22-30) mmol/L Creatinine (0.52-1.04) mg/dL Calcium (8.4-10.2) mg/dL AST (14-36) U/L Lactate Dehydrogenase (313-618) U/L Troponin I (0.000-0.034) ng/mL C-Reactive Protein (<1.0) mg/dL Total Protein (6.3-8.2) g/dL Albumin (3.5-5.0) g/dL Procalcitonin (0.02-0.09) ng/mL Microbiology - Last 24 Hours (Table) 03/08/21 20:48 Blood Culture - Preliminary Blood No Growth after 24 hours 03/08/21 20:55 Blood Culture - Preliminary Blood No Growth after 24 hours Assessment and Plan Assessment: 1 COVID-19 infection with generalized weakness, fatigue, poor appetite, dehydration 2 Acute hypoxic respiratory failure secondary to COVID-19 pneumonia 3 Complete heart block versus second-degree heart block with bradycardia, currently on dopamine 4 Troponin leak, currently on heparin drip and mild to moderately impaired left ventricular systolic function with ejection fraction 40-45% 5 Hyponatremia, current sodium 129. 6 Elevated inflammatory markers secondary to COVID-19. 7 Multiple sclerosis with limited mobility 8 History of depression 9 Hypertension Plan: The patient was seen and evaluated by Dr. Rosales Chest x-ray,labs, echocardiogram reviewed Continue dexamethasone, vitamin supplements Dopamine drip and heparin drip on hold Plan is for a permanent pacemaker implantation later today Follow-up chest x-ray, inflammatory markers in a.m. We will continue to follow and make further recommendations based on her clinical status
--- NOTE | 2021-03-10 07:58 | XR ---
EXAMINATION TYPE: XR chest 1V portable DATE OF EXAM: 03/10/2021 COMPARISON: 03/09/2021 INDICATION: Covid TECHNIQUE: Single frontal view of the chest is obtained. FINDINGS: The heart size is normal. The pulmonary vasculature is normal. Patchy infiltrates are present greatest at the right lung base. IMPRESSION: 1. 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
[2021-03-10] MEDS ORDERED: SODIUM CHLORIDE 0.9% 1,000 ML IV SCH (10:45)
--- NOTE | 2021-03-10 12:55 | PN ---
PROGRESS NOTE This lady is 70 years of age. She appears to have a 2 as to 1 block with an underlying left bundle. She is here with an Covid positive situation and pneumonia, which I doubt is Covid pneumonia. She has been already vaccinated. She is actually doing well from this standpoint. I explained to her the need for a pacemaker, talked to the patient and also at her request talked to her sister. Explained the rationale, risks, benefits, options related to a dual-chamber pacemaker. I will place a temporary pacemaker prior. The procedure will be performed at 1 p.m. today. She understands the rationale, risks, benefits, options and wishes to proceed. She has been placed on 5 mics of dopamine and the heart rate went up from 45 to 48. I will therefore discontinue the dopamine for now. Continue her other medications. We will discontinue heparin 4 hours prior to the procedure. Vitals are stable. Blood pressure is 140/70, pulse rate is about 46. No JVD. S1-S2 heard normally. Short systolic murmur noted. Lungs revealed decent air entry. Abdomen is soft. Lower extremities reveal diminished pulses. Echo revealed ejection fraction that is impaired with some septal hypokinesia. Ejection fraction in the 40% to 45% range. MMODL / IJN: [id number] /
[2021-03-10] MEDS ORDERED: ceFAZolin 1 GM in SODIUM CHLORIDE 0.9% 250 ML IRRIGATION PRN (13:11)
[2021-03-10] MEDS ORDERED: LIDOCAINE 1% INJ 10MG/ML (20 ML MDV) ONE (13:22)
[2021-03-10] MEDS ORDERED: IOPAMIDOL-250 50ML BTL IV ONE (13:35)
[2021-03-10] MEDS ORDERED: IV FLUID CONTINUATION 900 ML IV ONE (13:47)
[2021-03-10] MEDS ORDERED: SODIUM CHLORIDE 0.9% 500 ML 500 ML IV ONE (13:47)
[2021-03-10] MEDS ORDERED: LIDOCAINE 1% INJ 10MG/ML (20 ML MDV) SQ ONE ×2 (13:47→14:17)
[2021-03-10] MEDS ORDERED: MIDAZOLAM 2 MG/2 ML VIAL IV ONE (14:15)
[2021-03-10] MEDS ORDERED: ACETAMINOPHEN TAB 325 MG TAB PO PRN (16:25)
--- NOTE | 2021-03-10 17:13 | XR ---
EXAMINATION TYPE: XR chest 1V portable DATE OF EXAM: 03/10/2021 COMPARISON: 03/10/2021 HISTORY: Covid pneumonia TECHNIQUE: Single frontal view of the chest is obtained. FINDINGS: There is moderate partially consolidative opacity in the right mid lower lung zone which i s worsened in the interval since the prior study. There is been interval insertion of a 2-lead cardiac pacemaker. The left lung demonstrates mild interstitial prominence but no consolidative or masslike opacity. Heart size is normal. There is no pneumothorax IMPRESSION: Acute cardiopulmonary disease with mild interval worsening since prior study performed e eloise today. There is been interval insertion of a 2-lead cardiac pacemaker without pneumothorax.
[2021-03-10] MEDS ORDERED: FUROSEMIDE 10 MG/ML 2 ML VIAL IV ONE (17:27)
--- NOTE | 2021-03-10 19:40 | PCN ---
PROCEDURE NOTE DATE OF SERVICE: 03/10/2021. PROCEDURE PERFORMED: 1. Transvenous temporary pacemaker from the right femoral venous approach. 2. Permanent dual-chamber pacemaker from left infraclavicular approach. PERFORMED BY: Dr. Oliver Gaytan. SEDATION: Moderate conscious sedation time was 2 hours. The patient was administered Versed. Oxygen saturation, hemodynamics and EKG were monitored closely. CLINICAL INFORMATION: Mrs. Kaylin Figueroa is a 70-year-old lady with multiple sclerosis and hypertension who came into the hospital with symptoms of fatigue, lack of energy, and also was found to be positive for coronavirus antigen. She had received 2 doses of her vaccine, last 1 was more than 3 weeks ago. Her complaint was mostly generalized weakness, lack of energy and dizziness. She was found to be in a second-degree heart block with Wenckebach initially and then a 2 as to 1 conduction. After waiting for nearly 48 hours, she continued to be bradycardic. She was not on any rate lowering agents. Thyroid functions revealed TSH was normal. Because of persistent second-degree AV block with a 2:1 conduction and underlying left bundle, I recommended a permanent pacemaker after due discussion with the patient's daughter and also spoke to her son. The patient understood all details and wished to proceed with the procedure. PROCEDURE NOTE: Under local anesthesia and strict aseptic precautions, a 6-Monegasque introducer was placed in the right femoral vein. Under fluoroscopic guidance, a balloon tipped temporary pacemaker wire was advanced and positioned in the right ventricular apex. Good threshold was obtained. The threshold was 0.3 mV. The pacemaker was set at a backup rate of 35 beats per minute with a mA of 5. I then unscrubbed and rescrubbed and started the permanent pacemaker procedure. Under strict aseptic precautions and local anesthesia using a micropuncture needle technique, after an axillary venogram, under fluoroscopic guidance, I advanced with a micropuncture needle and gained access into the left axillary vein. Subsequently a linear incision was made of about 3.5 inches medial and parallel to the left deltopectoral groove. Blunt dissection was carried down. Good hemostasis was secured. I then obtained a 2nd access point with a micropuncture needle next to the previous wire. Good hemostasis was secured. The pocket was irrigated with antibiotic and a sponge with antibiotic drenched was left in the pocket for 30 minutes. A 6-Monegasque introducer was advanced and positioned in the axillary vein. Through the 6-Monegasque introducer, I advanced the ventricular lead and positioned it in the right ventricular apex. I had some difficulty advancing the lead into the apex because the lead kept going into the outflow tract. After some difficulty, I was able to position it. Good thresholds and sensitivities were obtained. Following the placement of the lead, in the good position and screwing the lead in this was an active lead. The patient became transiently relatively hypotensive. From a pressure of 150 she came to 102 and then slowly went back. There was some dislodgement of the ventricular pacemaker lead, but again I unscrewed it and repositioned it. Good thresholds and sensitivities were obtained. Subsequently, the peel-away sheath was taken out and the lead was secured to the underlying muscle with 0 silk with 2 separate sutures. I then advanced a 6-Monegasque introducer over the next guidewire and through this, I advanced the atrial lead. The atrial lead was positioned under fluoroscopic guidance. After getting good thresholds and sensitivities, the lead was screwed in. Good P-waves and threshold was obtained. Both the leads were checked in CONGOLESE and ZAVALETA projection. Both the leads were paced at 10 mV to look for any diaphragmatic pacing. No such issue was discovered. Subsequently the pocket was irrigated again. The leads were then connected to the pulse generator. The device was again interrogated. The pulse generator was then secured to the underlying muscle in the line of the incision. I checked the lead again under fluoroscopic visualization. The pocket was then closed in 2 layers. The first layer was a 2-0 Vicryl and 2nd layer was a 3-0 Vicryl, which was a subcutaneous suture. Excellent hemostasis was achieved. Patient tolerated the procedure well. The patient's blood pressure at the end of the procedure was 140/80 and pulse rate was about 80 per minute with atrial sense and ventricular paced. Pacemaker parameters were again finally checked. The patient received antibiotic Kefzol 1 g at the time of the incision. The details of the procedure were discussed with the patient as well as her son. I called her sister a couple of times, but I could not reach her. Information was communicated to the patient's son Yannick. I will obtain a portable chest x-ray today and a two-view chest x- ray tomorrow and device will be again checked tomorrow. Patient tolerated procedure well without complication. PACEMAKER INFORMATION: The pulse generator is lap cutter is [employer], model is [employer] MRI 2272, serial #[id number]. The atrial lead lap cutter was [employer], model Tendril STS 2088TC/52, serial number [id number]. Ventricular lead lap cutter is [employer], model Tendril STS 2088TC/58, serial number [id number]. The atrial threshold was 0.75 V at 0.4 milliseconds. P-waves were 4.4 mV. The lead impedance was 640 ohms. The ventricular threshold was 1.0 V at 0.4 milliseconds. R- waves were 8.7 mV. The lead impedance was 690 ohms. The pacemaker was set in a DDD mode at a low rate of 50, high rate of 110, paced delay of 225 milliseconds and sensed delay of 200 milliseconds. The patient tolerated the procedure well. She will have both the device check and chest x-ray tomorrow and a portable chest x-ray today. MMODL / IJN: [id number] /
[2021-03-10] MEDS: LOSARTAN 50 MG TAB PO SCH (21:13)
[2021-03-10] MEDS: HEPARIN SODIUM,PORCINE/PF 5,000 UNIT/0.5 ML SYRINGE SQ SCH (21:13)
--- NOTE | 2021-03-10 22:45 | P.PN ---
Subjective Progress Note Date: 03/10/21 Principal diagnosis: Complete Heart Block Ms. Figueroa is a 70-year-old female with a past medical history of multiple sclerosis, hypertension coming into the hospital with a chief complaint of generalized weakness and fatigue. Patient states that she received her second dose of soto virus vaccine 1 month back and since then she continued to have generalized weakness and fatigue. She thought her symptoms would resolve but progressively worsening that she came into the hospital for further evaluation. Patient denies having any fevers chills or rigors. She complains of cough that is productive in nature with clear sputum. She denies having any abdominal pain nausea vomiting or diarrhea. No change in her sense of taste or smell. Patient denies having any dysuria or hematuria. Patient states that she has been not eating or drinking well for the past 3-4 weeks. Patient mentions that she has caregivers at home and her caregiver was tested positive for soto virus. In the ER at the time of admission patient was found to have a fever of 102.9, heart rate of 48, respiratory rate 20, blood pressure 140/68, saturating at 95% on room air. She had a chest x-ray showing coarse interstitial markings bilateral with left lobe infiltrate. Patient had an EKG showing complete heart block with anterolateral ischemia. So the patient was started on dopamine drip and heparin drip and admitted to the ICU. Patient also received 1 dose of ceftriaxone and Zithromax. She is currently being monitored in the ICU. On 03/10/2021 -patient was seen and examined at the bedside. Patient is in the ICU. She just had pacemaker placement done by Dr. DANIELA Shahid this afternoon. Postprocedure the patient had a chest x-ray showing interval worsening of consolidative opacity. Patient states she does not have any chest pain or palpitations. Complains of mild difficulty in breathing. She complains of generalized weakness. On reviewing her vitals temperature of 97.6, heart rate 84, respiratory rate 20, blood pressure 142/88, saturating at 94% on 2 L of oxygen by nasal cannula. On reviewing the labs from this morning white count of four-point, hemoglobin 9.3, platelets 103. Sodium 129, potassium 4.4, chloride 105, bicarb 19, BUN 13, creatinine 0.41 Active Medications Acetaminophen (Acetaminophen Tab 325 Mg Tab) 650 mg PO Q6HR PRN PRN Reason: Mild Pain Ascorbic Acid (Ascorbic Acid 500 Mg Tab) 1,000 mg PO DAILY [facility] Last Admin: 03/10/21 07:44 Dose: 1,000 mg Documented by: Aspirin (Aspirin 81 Mg) 81 mg PO DAILY [facility] Baclofen (Baclofen 10 Mg Tab) 20 mg PO HS PRN PRN Reason: Muscle Pain Last Admin: 03/10/21 21:13 Dose: 20 mg Documented by: Baclofen (Baclofen 10 Mg Tab) 10 mg PO BID@0700,1200 PRN PRN Reason: Muscle Pain Last Admin: 03/10/21 07:50 Dose: 10 mg Documented by: Cholecalciferol (Cholecalciferol 25 Mcg (1000 Iu) Tablet) 25 mcg PO DAILY [facility] Last Admin: 03/10/21 07:44 Dose: 25 mcg Documented by: Dexamethasone Sodium Phosphate (Dexamethasone Sod Phosphate 10 Mg/Ml 1 Ml Vial) 6 mg IV DAILY [facility] Last Admin: 03/10/21 07:44 Dose: 6 mg Documented by: Fluoxetine HCl (Fluoxetine Hcl 20 Mg Cap) 20 mg PO DAILY [facility] Last Admin: 03/10/21 07:44 Dose: 20 mg Documented by: Heparin Sodium (Porcine) (Heparin Sodium,Porcine/Pf 5,000 Unit/0.5 Ml Syringe) 5,000 unit SQ Q12HR [facility] Last Admin: 03/10/21 21:13 Dose: 5,000 unit Documented by: Sodium Chloride (Saline 0.9%) 1,000 mls @ 50 mls/hr IV .Q20H [facility] Last Admin: 03/10/21 20:13 Dose: 50 mls/hr Documented by: Sodium Chloride (Saline 0.9%) 1,000 mls @ 50 mls/hr IV .Q20H [facility] Last Admin: 03/10/21 17:09 Dose: Not Given Documented by: Cefazolin Sodium 1 gm/ Sodium (Chloride) 50 mls @ 100 mls/hr IVPB Q6H [facility] Stop: 03/11/21 20:29 Last Admin: 03/10/21 20:13 Dose: 100 mls/hr Documented by: Losartan Potassium (Losartan 50 Mg Tab) 50 mg PO HS [facility] Last Admin: 03/10/21 21:13 Dose: 50 mg Documented by: Naloxone HCl (Naloxone 0.4 Mg/Ml 1 Ml Vial) 0.2 mg IV Q2M PRN PRN Reason: Opioid Reversal Non-Formulary Medication (Dextroamphetamine/Amphetamine [Adderall]) 10 mg PO DAILY PRN PRN Reason: ALERTNESS Pantoprazole Sodium (Pantoprazole 40 Mg/10 Ml Vial) 40 mg IV DAILY [facility] Last Admin: 03/10/21 07:43 Dose: 40 mg Documented by: Ropinirole HCl (Ropinirole Hcl 0.25 Mg Tab) 0.5 mg PO HS PRN PRN Reason: RESTLESS LEGS Last Admin: 03/10/21 21:12 Dose: 0.5 mg Documented by: Sodium Chloride (Sodium Chloride 0.9% Flush 10 Ml Syringe) 10 ml IV Q12HR [facility] Last Admin: 03/10/21 21:13 Dose: 10 ml Documented by: Zinc Sulfate (Zinc Sulfate 220 Mg Cap) 220 mg PO DAILY [facility] Last Admin: 03/10/21 07:44 Dose: 220 mg Documented by: Objective - Vital Signs Vital signs: Vital Signs Temp 98.7 F 03/10/21 12:00 Pulse 42 L 03/10/21 12:00 Resp 18 03/10/21 12:00 BP 155/70 03/10/21 13:00 Pulse Ox 94 L 03/10/21 12:00 Intake & Output 03/09/21 03/10/21 03/10/21 18:59 06:59 18:59 Intake Total 1560 1138.838 950 Output Total 810 1545 385 Balance 750 -406.162 565 Weight 77.2 kg Intake: IV 1560 1000 950 Sodium Chloride 0.9% 1, 1560 650 000 ml @ 130 mls/hr IV . Q7H42M [facility] Rx#:[id number] Sodium Chloride 0.9% 1, 350 350 000 ml @ 50 mls/hr IV . Q20H [facility] Rx#:[id number] Intake, IV Titration 0 138.838 Amount DOPamine DRIP 800 mg In 138.838 Dextrose/Water 1 250ml. bag @ 2.5 MCG/KG/MIN 3. 083 mls/hr IV .Q24H [facility] Rx#:[id number] Heparin Sod,Pork in 0.45% 0 NaCl 25,000 unit In 0.45 % NaCl 1 250ml.bag @ 12 UNITS/KG/HR 7.893 mls/hr IV .Q24H [facility] Rx#: [id number] Output: Urine 810 4185 385 Other: Voiding Method Indwelling Catheter Indwelling Catheter Indwelling Catheter - Exam PHYSICAL EXAMINATION: GENERAL: Elderly female lying in bed appears to be no acute distress. She is currently being monitored in the ICU. HEENT: Pupils are round and equally reacting to light. EOMI. No scleral icterus. No conjunctival pallor. CARDIOVASCULAR: S1 and S2 heard PULMONARY: Bilateral breath sounds are positive. Cracklesin the lower lung bases bilaterally ABDOMEN: Soft, nontender, nondistended, normoactive bowel sounds. No palpable organomegaly. MUSCULOSKELETAL: No joint swelling or deformity. EXTREMITIES: No cyanosis, clubbing, or pedal edema. NEUROLOGICAL: Gross neurological examination did not reveal any focal deficits. SKIN: No rashes. - Labs CBC & Chem 7: 03/10/21 04:54 03/10/21 04:54 Labs: Abnormal Lab Results - Last 24 Hours (Table) 03/10/21 03/10/21 03/10/21 Range/Units 00:11 04:54 04:54 RBC (3.80-5.40) m/uL Hgb (11.4-16.0) gm/dL Lymphocytes # (1.0-4.8) k/uL APTT 63.8 H (22.0-30.0) sec Sodium 129 L (137-145) mmol/L Carbon Dioxide 19 L (22-30) mmol/L Creatinine 0.41 L (0.52-1.04) mg/dL Calcium 7.3 L (8.4-10.2) mg/dL AST 55 H (14-36) U/L Lactate Dehydrogenase 868 H (313-618) U/L Troponin I 0.101 H* (0.000-0.034) ng/mL C-Reactive Protein 6.8 H (<1.0) mg/dL Total Protein 4.7 L (6.3-8.2) g/dL Albumin 2.5 L (3.5-5.0) g/dL 03/10/21 Range/Units 04:54 RBC 3.67 L (3.80-5.40) m/uL Hgb 11.3 L (11.4-16.0) gm/dL Lymphocytes # 0.6 L (1.0-4.8) k/uL APTT (22.0-30.0) sec Sodium (137-145) mmol/L Carbon Dioxide (22-30) mmol/L Creatinine (0.52-1.04) mg/dL Calcium (8.4-10.2) mg/dL AST (14-36) U/L Lactate Dehydrogenase (313-618) U/L Troponin I (0.000-0.034) ng/mL C-Reactive Protein (<1.0) mg/dL Total Protein (6.3-8.2) g/dL Albumin (3.5-5.0) g/dL Microbiology - Last 24 Hours (Table) 03/08/21 20:48 Blood Culture - Preliminary Blood No Growth after 24 hours 03/08/21 20:55 Blood Culture - Preliminary Blood No Growth after 24 hours Assessment and Plan Assessment: ASSESSMENT Generalized fatigue and weakness secondary to COVID-19 infection Complete heart block versus second-degree heart block Acute hypoxic respiratory failure secondary to COVID-19 pneumonia Elevated troponin Hyponatremia Increased inflammatory markers Multiple sclerosis History of depression with anxiety Hypertension STEPHEN: Patient was started on dexamethasone and multivitamin supplements. She was on heparin drip, it has been discontinued. Cardiology , DR. DANIELA shahid placed a pace maker this afternoon. Post - op rpeat CXR showing mild congestion, so she is being a dose of IV Lasix now. We will follow up in inflammatory markers and chest x-ray. Continue to monitor patient closely in the ICU setting. Overall prognosis is guarded. Patient's CODE STATUS is DO NOT RESUSCITATE. Further recommendations to follow depending on the progress of the patient.
[2021-03-11 03:52] LABS: Basophils % (A) 0 %; Eosinophils % (A) 0 %; HCT 33.9 % (34.0-46.0); HGB 11.7 gm/dL (11.4-16.0); Lymphocytes # (A) 0.4 k/uL (1.0-4.8); Lymphocytes % (A) 6 %; MCH 32.1 pg (25.0-35.0); MCHC 34.6 g/dL (31.0-37.0); MCV 92.8 fL (80.0-100.0); Mean Platelet Volume 8.2; Monocytes # (A) 0.4 k/uL (0-1.0); Monocytes % (A) 8 %; Neutrophils # (A) 4.7 k/uL (1.3-7.7); Neutrophils % (A) 84 %; Platelet Count 151 k/uL (150-450); RBC 3.65 m/uL (3.80-5.40); RDW 12.5 % (11.5-15.5); WBC 5.6 k/uL (3.8-10.6)
[2021-03-11 04:02] LABS: ALT 23 U/L (4-34); African American GFR (CKD) >90 (>60 ml/min/1.73 sqM); Albumin 2.7 g/dL (3.5-5.0); Anion Gap 4 mmol/L; Blood Urea Nitrogen 13 mg/dL (7-17); Calcium 7.3 mg/dL (8.4-10.2); Carbon Dioxide 22 mmol/L (22-30); Chloride 106 mmol/L (98-107); Glucose 96 mg/dL (74-99); Non-African American GFR(CKD) >90 (>60 ml/min/1.73 sqM); Sodium 132 mmol/L (137-145); Total Bilirubin 0.4 mg/dL (0.2-1.3); Total Protein 5.1 g/dL (6.3-8.2)
[2021-03-11 04:07] LABS: AST 58 U/L (14-36); Alkaline Phosphatase 58 U/L (38-126); Potassium 4.7 mmol/L (3.5-5.1)
--- NOTE | 2021-03-11 08:19 | XR ---
EXAMINATION TYPE: XR chest 1V DATE OF EXAM: 03/11/2021 COMPARISON: Chest x-ray 03/10/2021 HISTORY: Lead placement check TECHNIQUE: Single frontal view of the chest is obtained. FINDINGS: Pacemaker is stable with a generator in the left pectoral region, there are leads in right atrium and ventricle. Patient is rotated. There is no evident pneumothorax or sizable effusion. Patc hy airspace disease is present bilaterally. Cardiac mediastinal silhouette shows a similar appearance . There are overlying leads. Overlying artifacts noted. IMPRESSION: Correlate for pneumonia, edema. No evident complication status post pacemaker placement.
[2021-03-11] MEDS: DEXAMETHASONE SOD PHOSPHATE 10 MG/ML 1 ML VIAL IV SCH (10:19)
[2021-03-11] MEDS: FLUoxetine HCL 20 MG CAP PO SCH (10:19)
[2021-03-11] MEDS: ZINC SULFATE 220 MG CAP PO SCH (10:19)
[2021-03-11] MEDS: ASCORBIC ACID 500 MG TAB PO SCH (10:19)
[2021-03-11] MEDS: ASPIRIN 81 MG PO SCH (10:19)
[2021-03-11] MEDS: CHOLECALCIFEROL 25 MCG (1000 IU) TABLET PO SCH (10:20)
[2021-03-11] MEDS: HEPARIN SODIUM,PORCINE/PF 5,000 UNIT/0.5 ML SYRINGE SQ SCH ×2 (10:20→21:51)
[2021-03-11] MEDS: PANTOPRAZOLE 40 MG/10 ML VIAL IV SCH (10:20)
[2021-03-11] MEDS: SODIUM CHLORIDE 0.9% 1,000 ML IV SCH ×2 (10:24→15:38)
[2021-03-11] MEDS: LEVOFLOXACIN 500MG-D5W PMX 500 MG in DEXTROSE/WATER 1 100ML.BAG IVPB SCH (10:25)
--- NOTE | 2021-03-11 10:51 | P.PN ---
Subjective Progress Note Date: 03/11/21 Principal diagnosis: Acute COVID-19 pneumonia and complete heart block. This is a very pleasant 70-year-old female patient who follows with Dr. Cook as her primary care provider. She has a history of multiple sclerosis, hypertension, depression. She presented to the emergency room yesterday after a 3-4 week history of generalized weakness and fatigue. She received her second dose of the soto virus vaccine approximately at that same time and has not felt well since. She presented to the emergency room with a temperature 102.9. Productive cough of clear sputum. No nausea, vomiting or diarrhea. She does states her appetite has been poor. She states she generally can't swallow well. Feeds herself. She is quite limited mobility fierro. Mainly is from bed to rec liner only at home. She has caregivers that come to the house twice a day. She has a son who lives with her. X-ray does show coarse interstitial markings bilaterally with some mild airspace infiltrate in the left lower lobe. White count 5.1. Hemoglobin 12.2. Platelet count 146. Lymphocytes 0.6. D-dimer 0.29. Sodium 133. Potassium 4.0. Creatinine 0.53. Troponin 0.120. LDH 874. C-reactive protein 6.4. TSH 0.675. Free T4 1 0.28. Soto virus positive. EKG reveals evidence of complete heart block with anterolateral ischemia. Jugular rate mainly in the 40s and low 50s. He was initiated on a dopamine drip at 5 mcg/kg/m. Heparin drip per weight base protocol. 0.9 normal saline at 130 ML's per hour. She received ceftriaxone and azithromycin 1 yesterday. She is seen today in consultation in the intensive care unit. She is currently awake and alert in no acute distress. She denies any worsening shortness of breath, cough or congestion. She denies any chest pain. She expresses desire to be a DO NOT RESUSCITATE/DO NOT INTUBATE CODE STATUS. She also is requesting to be home as soon as possible. She is currently afebrile. Echocardiogram pending. The patient is seen today in 03/10/2021 in follow-up in the intensive care unit. She is currently sitting up in bed. Awake and alert in no acute distress. Currently on 2 L/m per nasal cannula and maintaining O2 saturation in the low 90s. She does desaturate into the 80s once she is off the oxygen. She remains bradycardic in complete heart block alternating with a high degree second-degree block. Heparin drip and dopamine drips are on hold. The plan is for permanent pacemaker implantation later today. She remains on dexamethasone, vitamin supplements. 0.9 normal saline at 50 MLS per hour. Chest x-ray continues to revealed bilateral patchy infiltrates. Blood cultures revealing no growth to date. White count 4.6. Hemoglobin 11.3. Lymphocytes 0.6. Sodium 129. Potassium 4.4. Creatinine 0.41. LDH 868. C-reactive protein 6.8. Echocardiogram reveals mild to moderately impaired left ventricular systolic function with ejection fraction 40-45%. Moderate pulmonary hypertension. Patient was reevaluated today on 03/11/2021, remains in the ICU, she is status post permanent pacemaker implantation by cardiology. Patient is doing fairly well. Remains on 2 L nasal cannula, and her O2 saturation is 93%. Patient is hemodynamically stable. Chest x-ray clearly shows significant right lower lobe infiltrate. Remains on Decadron 6 mg IV push daily. Patient is also on heparin subcu, started the patient on antibiotics in the form of Levaquin today for her right lower lobe pneumonia and she is also on Ancef which was started after pacemaker implantation. She is on the COVID-19 cocktail. Overall the patient seems to be doing fairly well. And I plan to transfer the patient out of the ICU to a cardiac floor today. CBC is relatively normal electroencephalogram normal renal profile is normal, troponin is trending down. LDH is trending down at 868. C-reactive protein is about the same at 6.8. Objective - Vital Signs Vital signs: Vital Signs Temp 98.6 F 03/11/21 08:00 Pulse 98 03/11/21 10:00 Resp 16 03/11/21 10:00 BP 132/79 03/11/21 09:00 Pulse Ox 93 L 03/11/21 10:00 Intake & Output 03/10/21 03/11/21 03/11/21 18:59 06:59 18:59 Intake Total 1100 650 50 Output Total 485 1640 35 Balance 615 -990 15 Weight 67.8 kg Intake: IV 1100 650 50 Sodium Chloride 0.9% 1, 500 550 50 000 ml @ 50 mls/hr IV . Q20H [facility] Rx#:[id number] ceFAZolin 2 gm In Sodium 100 Chloride 0.9% 50 ml @ 100 mls/hr IVPB ONCE PRN Rx# :[id number] Output: Urine 485 1640 35 Other: Voiding Method Indwelling Catheter Indwelling Catheter - Exam Physical Exam: Revealed 70-year-old female in no distress, on 2 L nasal cannula. Head: Atraumatic, normocephalic. HEENT:[Neck is supple.] [No neck masses.] [No thyromegaly.] [No JVD.]EOMI, nonicteric. Chest: [Symmetrical chest expansion, crackles at the bases especially at the right base. No rhonchi and no wheezes. Cardiac Exam: [Normal S1 and S2, no S3 gallop, no murmur.] Abdomen: [Soft, nontender, no megaly, no rebound, no guarding, normal bowel sounds.] Extremities: [No clubbing, no edema, no cyanosis.] Good pulses bilaterally. Musculoskeletal: No deformities normal range of motion. Neurological Exam: Generalized weakness, related to underlying MS, otherwise no focal neurologic deficits. Alert oriented 3. Psychiatric: Normal mood affect and normal mental status examination. Skin: No rashes. - Labs CBC & Chem 7: 03/11/21 02:54 03/11/21 02:54 Labs: Abnormal Lab Results - Last 24 Hours (Table) 03/11/21 03/11/21 Range/Units 02:54 02:54 RBC 3.65 L (3.80-5.40) m/uL Hct 33.9 L (34.0-46.0) % Lymphocytes # 0.4 L (1.0-4.8) k/uL Sodium 132 L (137-145) mmol/L Creatinine 0.45 L (0.52-1.04) mg/dL Calcium 7.3 L (8.4-10.2) mg/dL AST 58 H (14-36) U/L Total Protein 5.1 L (6.3-8.2) g/dL Albumin 2.7 L (3.5-5.0) g/dL Microbiology - Last 24 Hours (Table) 03/08/21 20:55 Blood Culture - Preliminary Blood No Growth after 48 hours 03/08/21 20:48 Blood Culture - Preliminary Blood No Growth after 48 hours Assessment and Plan Assessment: Impression: Acute COVID-19 pneumonia with acute hypoxic respiratory failure secondary to C OVID-19 pneumonia Complete heart block requiring permanent pacemaker implantation. Acute troponin leak with impaired left ventricular systolic function, being addressed by cardiology. Elevated inflammatory markers secondary to COVID-19 pneumonia Acute hypovolemic hyponatremia, being corrected. History of multiple sclerosis with limited mobility. History of depression. Benign essential hypertension. Recommendation: Continue present COVID-19 cocktail. Including Decadron and vitamin supplements Cardiology is addressing her permanent pacemaker implantation and arrhythmia. Continue anticoagulation therapy. Continue to monitor inflammatory markers. And daily labs. Added Levaquin empirically, quite concerned about her pneumonia seems to be significant in the right lower lobe, concerned about superimposed bacterial pneumonia and I will go ahead and order appropriate acetone level. We will continue to follow, patient could be transferred out of the ICU to a monitor bed on selective today. Prognosis is relatively guarded considering her multiple medical problems and comorbidities. Time with Patient: Less than 30
--- NOTE | 2021-03-11 12:01 | ECHOF ---
Referral Reason:assess for pericardial effusion MEASUREMENTS -------- HEIGHT: 167.6 cm WEIGHT: 67.6 kg BP: 133/69 FINDINGS -------- Limited Study for pericardial effusion There is a small, generalized pericardial effusion present. CONCLUSIONS -------- 1. Limited Study for pericardial effusion 2. There is a small, generalized pericardial effusion present. EXECUTIVE MANAGER: Kirsten Serrano RDCS
--- NOTE | 2021-03-11 12:41 | P.PN ---
Subjective This is a pleasant 70-year-old female past medical history significant for multiple sclerosis and hypertension. She is currently being treated for COVID 19 and is s/p [facility] permanent pacemaker implantation secondary to high degree AV block and left bundle branch block by Dr. Gaytan yesterday. Limited echo obtained this morning reveals small generalized pericardial effusion. Blood pressure 132/79 heart rate 87 afebrile is maintaining oxygen saturation on nasal cannula. Laboratory data reviewed, WBC 5.6, hemoglobin 151, sodium 132, potassi um 4.7, creatinine 0.45. Currently maintained on aspirin 81 mg daily, Lasix 20 mg by mouth daily, losartan 50 mg daily and Kefzol. Repeat chest xray this morning reveals pneumonia, edema and no evident complications from pacemaker placement. ASSESSMENT High degree AV block Covid with pneumonia Hypertension Troponin leak secondary to Covid Cardiomyopathy, unknown type. Will require further work-up in the outpatient setting when covid has resolved PLAN Initiate atorvastatin 40 mg daily and lopressor 25 mg BID. Continue aspirin and losartan as previously ordered. Stable from a cardiac perspective. Nurse Practitioner note has been reviewed, I agree with a documented findings and plan of care. Patient was seen and examined. Objective - Vital Signs Vital signs: Vital Signs Temp 98.6 F 03/11/21 08:00 Pulse 98 03/11/21 10:00 Resp 16 03/11/21 10:00 BP 132/79 03/11/21 09:00 Pulse Ox 93 L 03/11/21 10:00 Intake & Output 03/10/21 03/11/21 03/11/21 18:59 06:59 18:59 Intake Total 1100 650 50 Output Total 485 1640 35 Balance 615 -990 15 Weight 67.8 kg Intake: IV 1100 650 50 Sodium Chloride 0.9% 1, 500 550 50 000 ml @ 50 mls/hr IV . Q20H [facility] Rx#:[id number] ceFAZolin 2 gm In Sodium 100 Chloride 0.9% 50 ml @ 100 mls/hr IVPB ONCE PRN Rx# :[id number] Output: Urine 485 1640 35 Other: Voiding Method Indwelling Catheter Indwelling Catheter - Labs CBC & Chem 7: 03/11/21 02:54 03/11/21 02:54 Labs: Abnormal Lab Results - Last 24 Hours (Table) 03/11/21 03/11/21 Range/Units 02:54 02:54 RBC 3.65 L (3.80-5.40) m/uL Hct 33.9 L (34.0-46.0) % Lymphocytes # 0.4 L (1.0-4.8) k/uL Sodium 132 L (137-145) mmol/L Creatinine 0.45 L (0.52-1.04) mg/dL Calcium 7.3 L (8.4-10.2) mg/dL AST 58 H (14-36) U/L Total Protein 5.1 L (6.3-8.2) g/dL Albumin 2.7 L (3.5-5.0) g/dL Microbiology - Last 24 Hours (Table) 03/08/21 20:55 Blood Culture - Preliminary Blood No Growth after 48 hours 03/08/21 20:48 Blood Culture - Preliminary Blood No Growth after 48 hours
--- NOTE | 2021-03-11 14:43 | P.PN ---
Subjective Progress Note Date: 03/11/21 Principal diagnosis: Complete Heart Block Ms. Figueroa is a 70-year-old female with a past medical history of multiple sclerosis, hypertension coming into the hospital with a chief complaint of generalized weakness and fatigue. Patient states that she received her second dose of soto virus vaccine 1 month back and since then she continued to have generalized weakness and fatigue. She thought her symptoms would resolve but progressively worsening that she came into the hospital for further evaluation. Patient denies having any fevers chills or rigors. She complains of cough that is productive in nature with clear sputum. She denies having any abdominal pain nausea vomiting or diarrhea. No change in her sense of taste or smell. Patient denies having any dysuria or hematuria. Patient states that she has been not eating or drinking well for the past 3-4 weeks. Patient mentions that she has caregivers at home and her caregiver was tested positive for soto virus. In the ER at the time of admission patient was found to have a fever of 102.9, heart rate of 48, respiratory rate 20, blood pressure 140/68, saturating at 95% on room air. She had a chest x-ray showing coarse interstitial markings bilateral with left lobe infiltrate. Patient had an EKG showing complete heart block with anterolateral ischemia. So the patient was started on dopamine drip and heparin drip and admitted to the ICU. Patient also received 1 dose of ceftriaxone and Zithromax. She is currently being monitored in the ICU. On 03/10/2021 -patient was seen and examined at the bedside. Patient is in the ICU. She just had pacemaker placement done by Dr. DANIELA Shahid this afternoon. Postprocedure the patient had a chest x-ray showing interval worsening of consolidative opacity. Patient states she does not have any chest pain or palpitations. Complains of mild difficulty in breathing. She complains of generalized weakness. On reviewing her vitals temperature of 97.6, heart rate 84, respiratory rate 20, blood pressure 142/88, saturating at 94% on 2 L of oxygen by nasal cannula. On reviewing the labs from this morning white count of four-point, hemoglobin 9.3, platelets 103. Sodium 129, potassium 4.4, chloride 105, bicarb 19, BUN 13, creatinine 0.41 On 03/11/2021 - patient is seen and examined at bedside in the ICU. Patient had permanent pacemaker implantation by cardiology yesterday. Patient complains of pain in the area where she had the pacemaker placed. Patient denies having any chest pain or palpitations. She denies having any difficulty in breathing. Patient denies having abdominal pain nausea vomiting or diarrhea. She states that her lower extremity spasms are bothering her. On reviewing the vitals t emperature 98.2, heart rate 97, respiratory rate 23, blood pressure 132/79, saturating at 90% on 2 L of nasal cannula. On reviewing the labs white count of 4.6, hemoglobin 11.7, platelets 151. Sodium 132, potassium 4.7, chloride 106, bicarbonate drip, BUN 15, creatinine 0.4. Active Medications Generic Name Dose Route Start Last Admin Trade Name Freq PRN Reason Stop Dose Admin Acetaminophen 650 mg 03/10/21 16:25 Acetaminophen Tab 325 Mg Tab PO Q6HR PRN Mild Pain Ascorbic Acid 1,000 mg 03/09/21 09:00 03/11/21 10:19 Ascorbic Acid 500 Mg Tab PO 1,000 mg DAILY QUENTIN Administration Aspirin 81 mg 03/11/21 09:00 03/11/21 10:19 Aspirin 81 Mg PO 81 mg DAILY QUENTIN Administration Atorvastatin Calcium 40 mg 03/11/21 21:00 Atorvastatin 40 Mg Tab PO HS QUENTIN Baclofen 20 mg 03/09/21 09:40 03/10/21 21:13 Baclofen 10 Mg Tab PO 20 mg HS PRN Administration Muscle Pain Baclofen 10 mg 03/09/21 12:00 03/10/21 07:50 Baclofen 10 Mg Tab PO 10 mg BID@0700,1200 PRN Administration Muscle Pain Cholecalciferol 25 mcg 03/09/21 09:00 03/11/21 10:20 Cholecalciferol 25 Mcg (1000 Iu) Tablet PO 25 mcg DAILY QUENTIN Administration Dexamethasone Sodium Phosphate 6 mg 03/09/21 09:00 03/11/21 10:19 Dexamethasone Sod Phosphate 10 Mg/Ml 1 Ml Vial IV 6 mg DAILY QUENTIN Administration Fluoxetine HCl 20 mg 03/09/21 09:45 03/11/21 10:19 Fluoxetine Hcl 20 Mg Cap PO 20 mg DAILY QUENTIN Administration Heparin Sodium (Porcine) 5,000 unit 03/10/21 21:00 03/11/21 10:20 Heparin Sodium,Porcine/Pf 5,000 Unit/0.5 Ml Syringe SQ 5,000 unit Q12HR QUENTIN Administration Sodium Chloride 1,000 mls @ 50 mls/hr 03/09/21 23:15 03/10/21 20:13 Saline 0.9% IV 50 mls/hr .Q20H QUENTIN Administration Sodium Chloride 1,000 mls @ 50 mls/hr 03/10/21 10:45 03/11/21 10:24 Saline 0.9% IV Not Given .Q20H QUENTIN Cefazolin Sodium 1 gm/ Sodium 50 mls @ 100 mls/hr 03/10/21 20:00 03/11/21 10:20 Chloride IVPB 03/11/21 20:29 100 mls/hr Q6H QUENTIN Administration Levofloxacin 500 mg/ IV 100 mls @ 100 mls/hr 03/11/21 10:00 03/11/21 10:25 Solution IVPB 100 mls/hr Q24H QUENTIN Administration Losartan Potassium 50 mg 03/10/21 21:00 03/10/21 21:13 Losartan 50 Mg Tab PO 50 mg HS QUENTIN Administration Metoprolol Tartrate 25 mg 03/11/21 21:00 Metoprolol Tartrate 25 Mg Tab PO BID QUENTIN Naloxone HCl 0.2 mg 03/08/21 20:45 Naloxone 0.4 Mg/Ml 1 Ml Vial IV Q2M PRN Opioid Reversal Non-Formulary Medication 10 mg 03/09/21 09:40 Dextroamphetamine/Amphetamine [Adderall] PO DAILY PRN ALERTNESS Pantoprazole Sodium 40 mg 03/08/21 21:00 03/11/21 10:20 Pantoprazole 40 Mg/10 Ml Vial IV 40 mg DAILY QUENTIN Administration Ropinirole HCl 0.5 mg 03/09/21 09:40 03/10/21 21:12 Ropinirole Hcl 0.25 Mg Tab PO 0.5 mg HS PRN Administration RESTLESS LEGS Sodium Chloride 10 ml 03/10/21 21:00 03/11/21 10:23 Sodium Chloride 0.9% Flush 10 Ml Syringe IV Not Given Q12HR QUENTIN Zinc Sulfate 220 mg 03/09/21 09:00 03/11/21 10:19 Zinc Sulfate 220 Mg Cap PO 220 mg DAILY QUENTIN Administration Objective - Vital Signs Vital signs: Vital Signs Temp 98.6 F 03/11/21 08:00 Pulse 98 03/11/21 10:00 Resp 16 03/11/21 10:00 BP 132/79 03/11/21 09:00 Pulse Ox 93 L 03/11/21 10:00 Intake & Output 03/10/21 03/11/21 03/11/21 18:59 06:59 18:59 Intake Total 1100 650 50 Output Total 485 1640 35 Balance 615 -990 15 Weight 67.8 kg Intake: IV 1100 650 50 Sodium Chloride 0.9% 1, 500 550 50 000 ml @ 50 mls/hr IV . Q20H [facility] Rx#:[id number] ceFAZolin 2 gm In Sodium 100 Chloride 0.9% 50 ml @ 100 mls/hr IVPB ONCE PRN Rx# :[id number] Output: Urine 485 1640 35 Other: Voiding Method Indwelling Catheter Indwelling Catheter - Exam PHYSICAL EXAMINATION: GENERAL: Elderly female lying in bed appears to be no acute distress. She is currently being monitored in the ICU. HEENT: Pupils are round and equally reacting to light. EOMI. No scleral icterus. No conjunctival pallor. CARDIOVASCULAR: S1 and S2 heard , soreness in the area of a pacemaker is placed PULMONARY: Bilateral breath sounds are positive. Cracklesin the lower lung bases bilaterally ABDOMEN: Soft, nontender, nondistended, normoactive bowel sounds. No palpable organomegaly. MUSCULOSKELETAL: No joint swelling or deformity. EXTREMITIES: No cyanosis, clubbing, or pedal edema. NEUROLOGICAL: Gross neurological examination did not reveal any focal deficits. SKIN: No rashes. - Labs CBC & Chem 7: 03/11/21 02:54 03/11/21 02:54 Labs: Abnormal Lab Results - Last 24 Hours (Table) 03/11/21 03/11/21 Range/Units 02:54 02:54 RBC 3.65 L (3.80-5.40) m/uL Hct 33.9 L (34.0-46.0) % Lymphocytes # 0.4 L (1.0-4.8) k/uL Sodium 132 L (137-145) mmol/L Creatinine 0.45 L (0.52-1.04) mg/dL Calcium 7.3 L (8.4-10.2) mg/dL AST 58 H (14-36) U/L Total Protein 5.1 L (6.3-8.2) g/dL Albumin 2.7 L (3.5-5.0) g/dL Microbiology - Last 24 Hours (Table) 03/08/21 20:55 Blood Culture - Preliminary Blood No Growth after 48 hours 03/08/21 20:48 Blood Culture - Preliminary Blood No Growth after 48 hours Assessment and Plan Assessment: ASSESSMENT Generalized fatigue and weakness secondary to COVID-19 infection Complete heart block versus second-degree heart block Status post permanent pacemaker placement done on 03/10/2021 Acute hypoxic respiratory failure secondary to COVID-19 pneumonia Elevated troponin Hyponatremia Increased inflammatory markers Multiple sclerosis History of depression with anxiety Hypertension STEPHEN: Patient was started on dexamethasone and multivitamin supplements. Cardiology , DR. DANIELA shahid implantation of permanent pacemaker done on 03/10/2021. Post - op repeat CXR showing mild congestion, so she is was given dose of IV Lasix . As a chest x-ray was also showing right lower lobe infiltra te patient has been started on levofloxacin. We will follow up in inflammatory markers and chest x-ray. Continue to monitor patient closely in the ICU setting. Overall prognosis is guarded. Patient's CODE STATUS is DO NOT RESUSCITATE. Further recommendations to follow depending on the progress of the patient.
[2021-03-11] MEDS: LOSARTAN 50 MG TAB PO SCH (21:51)
[2021-03-11] MEDS: METOPROLOL TARTRATE 25 MG TAB PO SCH (21:51)
[2021-03-11] MEDS: ATORVASTATIN 40 MG TAB PO SCH (21:51)
[2021-03-11] MEDS: BACLOFEN 10 MG TAB PO PRN (22:09)
[2021-03-12] MEDS: SODIUM CHLORIDE 0.9% 1,000 ML IV SCH ×2 (02:45→21:31)
[2021-03-12] MEDS: HEPARIN SODIUM,PORCINE/PF 5,000 UNIT/0.5 ML SYRINGE SQ SCH ×2 (08:55→21:33)
[2021-03-12] MEDS: FLUoxetine HCL 20 MG CAP PO SCH (08:56)
[2021-03-12] MEDS: ASCORBIC ACID 500 MG TAB PO SCH (08:56)
[2021-03-12] MEDS: DEXAMETHASONE SOD PHOSPHATE 10 MG/ML 1 ML VIAL IV SCH (08:56)
[2021-03-12] MEDS: ZINC SULFATE 220 MG CAP PO SCH (08:56)
[2021-03-12] MEDS: ASPIRIN 81 MG PO SCH (08:56)
[2021-03-12] MEDS: CHOLECALCIFEROL 25 MCG (1000 IU) TABLET PO SCH (08:56)
[2021-03-12] MEDS: METOPROLOL TARTRATE 25 MG TAB PO SCH ×2 (08:56→21:33)
[2021-03-12] MEDS: PANTOPRAZOLE 40 MG/10 ML VIAL IV SCH (08:57)
[2021-03-12] MEDS: LEVOFLOXACIN 500MG-D5W PMX 500 MG in DEXTROSE/WATER 1 100ML.BAG IVPB SCH (09:00)
--- NOTE | 2021-03-12 11:53 | P.PN ---
Subjective This is a pleasant 70-year-old female past medical history significant for multiple sclerosis and hypertension. She is currently being treated for COVID 19 and is s/p [employer] [facility] permanent pacemaker implantation secondary to high degree AV block and left bundle branch block by Dr. Gaytan 03/10/2021. Limited echo obtained 03/11/21 reveals small generalized pericardial effusion. Blood pressure 142/74 heart rate 77 afebrile is maintaining oxygen saturation 92% on 3 L nasal cannula. Laboratory data reviewed from yesterday, WBC 5.6, hemoglobin 151, s odium 132, potassium 4.7, creatinine 0.45. Currently maintained on aspirin 81 mg daily, atorvastatin 40 mg nightly, losartan 50 mg daily, metoprolol tartrate 25 mg twice a day Repeat chest xray yesterday reveals pneumonia, edema and no evident complications from pacemaker placement. Pacemaker interrogated which revealed the device is functioning within normal limits. ASSESSMENT High degree AV block s/p dual chamber pacemaker on 03/10/2021 Covid with pneumonia Hypertension Troponin leak secondary to Covid Cardiomyopathy, unknown type. Will require further work-up in the outpatient setting when covid has resolved PLAN Continue aspirin, statin, lopressor, losartan Stable from a cardiac perspective. We will follow the patient as needed at this time. Please reach out for any further questions or concerns. Patient to follow up with Dr. Gaytan, within 1 week when medically stable for discharge. Nurse Practitioner note has been reviewed, I agree with a documented findings and plan of care. Patient was seen and examined. Objective - Vital Signs Vital signs: Vital Signs Temp 98 F 03/12/21 11:37 Pulse 77 03/12/21 11:37 Resp 20 03/12/21 11:37 BP 142/74 03/12/21 11:37 Pulse Ox 93 L 03/12/21 11:37 Intake & Output 03/11/21 03/12/21 03/12/21 18:59 06:59 18:59 Intake Total 550 Output Total 210 1150 Balance 340 -1150 Intake: IV 550 Sodium Chloride 0.9% 1, 450 000 ml @ 50 mls/hr IV . Q20H [facility] Rx#:[id number] ceFAZolin 2 gm In Sodium 100 Chloride 0.9% 50 ml @ 100 mls/hr IVPB ONCE PRN Rx# :[id number] Output: Urine 210 1150 Other: Voiding Method Indwelling Catheter Indwelling Catheter Indwelling Catheter - Labs CBC & Chem 7: 03/11/21 02:54 03/11/21 02:54 Labs: Microbiology - Last 24 Hours (Table) 03/08/21 20:48 Blood Culture - Preliminary Blood No Growth after 72 hours 03/08/21 20:55 Blood Culture - Preliminary Blood No Growth after 72 hours
--- NOTE | 2021-03-12 15:10 | P.PN ---
Subjective Progress Note Date: 03/12/21 Principal diagnosis: Acute COVID-19 pneumonia and complete heart block. This is a very pleasant 70-year-old female patient who follows with Dr. Cook as her primary care provider. She has a history of multiple sclerosis, hypertension, depression. She presented to the emergency room yesterday after a 3-4 week history of generalized weakness and fatigue. She received her second dose of the soto virus vaccine approximately at that same time and has not felt well since. She presented to the emergency room with a temperature 102.9. Productive cough of clear sputum. No nausea, vomiting or diarrhea. She does states her appetite has been poor. She states she generally can't swallow well. Feeds herself. She is quite limited mobility fierro. Mainly is from bed to rec liner only at home. She has caregivers that come to the house twice a day. She has a son who lives with her. X-ray does show coarse interstitial markings bilaterally with some mild airspace infiltrate in the left lower lobe. White count 5.1. Hemoglobin 12.2. Platelet count 146. Lymphocytes 0.6. D-dimer 0.29. Sodium 133. Potassium 4.0. Creatinine 0.53. Troponin 0.120. LDH 874. C-reactive protein 6.4. TSH 0.675. Free T4 1 0.28. Soto virus positive. EKG reveals evidence of complete heart block with anterolateral ischemia. Jugular rate mainly in the 40s and low 50s. He was initiated on a dopamine drip at 5 mcg/kg/m. Heparin drip per weight base protocol. 0.9 normal saline at 130 ML's per hour. She received ceftriaxone and azithromycin 1 yesterday. She is seen today in consultation in the intensive care unit. She is currently awake and alert in no acute distress. She denies any worsening shortness of breath, cough or congestion. She denies any chest pain. She expresses desire to be a DO NOT RESUSCITATE/DO NOT INTUBATE CODE STATUS. She also is requesting to be home as soon as possible. She is currently afebrile. Echocardiogram pending. The patient is seen today in 03/10/2021 in follow-up in the intensive care unit. She is currently sitting up in bed. Awake and alert in no acute distress. Currently on 2 L/m per nasal cannula and maintaining O2 saturation in the low 90s. She does desaturate into the 80s once she is off the oxygen. She remains bradycardic in complete heart block alternating with a high degree second-degree block. Heparin drip and dopamine drips are on hold. The plan is for permanent pacemaker implantation later today. She remains on dexamethasone, vitamin supplements. 0.9 normal saline at 50 MLS per hour. Chest x-ray continues to revealed bilateral patchy infiltrates. Blood cultures revealing no growth to date. White count 4.6. Hemoglobin 11.3. Lymphocytes 0.6. Sodium 129. Potassium 4.4. Creatinine 0.41. LDH 868. C-reactive protein 6.8. Echocardiogram reveals mild to moderately impaired left ventricular systolic function with ejection fraction 40-45%. Moderate pulmonary hypertension. Patient was reevaluated today on 03/11/2021, remains in the ICU, she is status post permanent pacemaker implantation by cardiology. Patient is doing fairly well. Remains on 2 L nasal cannula, and her O2 saturation is 93%. Patient is hemodynamically stable. Chest x-ray clearly shows significant right lower lobe infiltrate. Remains on Decadron 6 mg IV push daily. Patient is also on heparin subcu, started the patient on antibiotics in the form of Levaquin today for her right lower lobe pneumonia and she is also on Ancef which was started after pacemaker implantation. She is on the COVID-19 cocktail. Overall the patient seems to be doing fairly well. And I plan to transfer the patient out of the ICU to a cardiac floor today. CBC is relatively normal electroencephalogram normal renal profile is normal, troponin is trending down. LDH is trending down at 868. C-reactive protein is about the same at 6.8. Reevaluated today on 03/12/2021, patient is resting in bed, in no distress, feels much better compared to how she felt upon presentation. Patient is relatively asymptomatic, she is on 3 L nasal cannula with O2 saturation 93%.Remains hemodynamically stable. Remains on Decadron. Remains on subcu heparin and on Levaquin. No major change in the last 24 hours. Patient is basically asymptomatic in spite of her abnormal chest x-ray. Objective - Vital Signs Vital signs: Vital Signs Temp 98 F 03/12/21 11:37 Pulse 77 03/12/21 11:37 Resp 20 03/12/21 11:37 BP 142/74 03/12/21 11:37 Pulse Ox 93 L 03/12/21 11:37 Intake & Output 03/11/21 03/12/21 03/12/21 18:59 06:59 18:59 Intake Total 550 120 Output Total 210 1150 Balance 340 -1150 120 Intake: IV 550 Sodium Chloride 0.9% 1, 450 000 ml @ 50 mls/hr IV . Q20H [facility] Rx#:[id number] ceFAZolin 2 gm In Sodium 100 Chloride 0.9% 50 ml @ 100 mls/hr IVPB ONCE PRN Rx# :[id number] Oral 120 Output: Urine 210 1150 Other: Voiding Method Indwelling Catheter Indwelling Catheter Indwelling Catheter # Bowel Movements 1 - Exam Physical Exam: Revealed 70-year-old female in no distress, on 3 L nasal cannula. Head: Atraumatic, normocephalic. HEENT:[Neck is supple.] [No neck masses.] [No thyromegaly.] [No JVD.]EOMI, nonicteric. Chest: [Symmetrical chest expansion, crackles at the bases especially at the right base. No rhonchi and no wheezes. Cardiac Exam: [Normal S1 and S2, no S3 gallop, no murmur.] Abdomen: [Soft, nontender, no megaly, no rebound, no guarding, normal bowel sounds.] Extremities: [No clubbing, no edema, no cyanosis.] Good pulses bilaterally. Musculoskeletal: No deformities normal range of motion. Neurological Exam: Generalized weakness, related to underlying MS, otherwise no focal neurologic deficits. Alert oriented 3. Psychiatric: Normal mood affect and normal mental status examination. Skin: No rashes. - Labs CBC & Chem 7: 03/11/21 02:54 03/11/21 02:54 Labs: Microbiology - Last 24 Hours (Table) 03/08/21 20:48 Blood Culture - Preliminary Blood No Growth after 72 hours 03/08/21 20:55 Blood Culture - Preliminary Blood No Growth after 72 hours Assessment and Plan Assessment: Impression: Acute COVID-19 pneumonia with acute hypoxic respiratory failure secondary to COVID-19 pneumonia Complete heart block requiring permanent pacemaker implantation. Acute troponin leak with impaired left ventricular systolic function Elevated inflammatory markers secondary to COVID-19 pneumonia Acute hypovolemic hyponatremia, resolved History of multiple sclerosis with limited mobility. History of depression. Benign essential hypertension. Recommendation: Continue present COVID-19 cocktail. Continue subcu heparin. Continue to monitor inflammatory markers. Continue Levaquin Continue Decadron. Consider discharge planning in the next 24-48 hours We'll continue to follow. Time with Patient: Less than 30
[2021-03-12] MEDS: LOSARTAN 50 MG TAB PO SCH (21:33)
[2021-03-12] MEDS: ATORVASTATIN 40 MG TAB PO SCH (21:33)
[2021-03-12] MEDS: BACLOFEN 10 MG TAB PO PRN (21:33)
--- NOTE | 2021-03-13 00:01 | P.PN ---
Subjective Progress Note Date: 03/12/21 Principal diagnosis: Complete heart block versus second-degree heart block. Status post permanent pacemaker placement done on 03/10/2021 Acute hypoxic respiratory failure secondary to COVID-19 pneumonia Ms. Figueroa is a 70-year-old female with a past medical history of multiple sclerosis, hypertension coming into the hospital with a chief complaint of generalized weakness and fatigue. Patient states that she received her second dose of soto virus vaccine 1 month back and since then she continued to have generalized weakness and fatigue. She thought her symptoms would resolve but progressively worsening that she came into the hospital for further evaluation. Patient denies having any fevers chills or rigors. She complains of cough that is productive in nature with clear sputum. She denies having any abdominal pain nausea vomiting or diarrhea. No change in her sense of taste or smell. Patient denies having any dysuria or hematuria. Patient states that she has been not eating or drinking well for the past 3-4 weeks. Patient mentions that she has caregivers at home and her caregiver was tested positive for soto virus. In the ER at the time of admission patient was found to have a fever of 102.9, heart rate of 48, respiratory rate 20, blood pressure 140/68, saturating at 95% on room air. She had a chest x-ray showing coarse interstitial markings bilateral with left lobe infiltrate. Patient had an EKG showing complete heart block with anterolateral ischemia. So the patient was started on dopamine drip and heparin drip and admitted to the ICU. Patient also received 1 dose of ceftriaxone and Zithromax. She is currently being monitored in the ICU. On 03/10/2021 -patient was seen and examined at the bedside. Patient is in the ICU. She just had pacemaker placement done by Dr. DANIELA Shahid this afternoon. Postprocedure the patient had a chest x-ray showing interval worsening of consolidative opacity. Patient states she does not have any chest pain or palpitations. Complains of mild difficulty in breathing. She complains of generalized weakness. On reviewing her vitals temperature of 97.6, heart rate 84, respiratory rate 20, blood pressure 142/88, saturating at 94% on 2 L of oxygen by nasal cannula. On reviewing the labs from this morning white count of four-point, hemoglobin 9.3, platelets 103. Sodium 129, potassium 4.4, chloride 105, bicarb 19, BUN 13, creatinine 0.41 On 03/11/2021 - patient is seen and examined at bedside in the ICU. Patient had permanent pacemaker implantation by cardiology yesterday. Patient complains of pain in the area where she had the pacemaker placed. Patient denies having any chest pain or palpitations. She denies having any difficulty in breathing. Patient denies having abdominal pain nausea vomiting or diarrhea. She states that her lower extremity spasms are bothering her. On reviewing the vitals temperature 98.2, heart rate 97, respiratory rate 23, blood pressure 132/79, saturating at 90% on 2 L of nasal cannula. On reviewing the labs white count of 4.6, hemoglobin 11.7, platelets 151. Sodium 132, potassium 4.7, chloride 106, bicarbonate drip, BUN 15, creatinine 0.4. 03/12/2021 Patient is currently lying in the bed comfortably. Status post dual-chamber pacemaker placement on 03/10/2021. Requiring oxygen at 3 L via nasal cannula. Continued on dexamethasone and subcu heparin and Levaquin. Pulmonary and cardiology is on board. Laboratory tests reviewed. Anticipate discharge in the next 24 hours with more clinical improvement. Current medications reviewed. Objective - Vital Signs Vital signs: Vital Signs Temp 98.6 F 03/12/21 16:52 Pulse 72 03/12/21 16:52 Resp 20 03/12/21 16:52 BP 169/82 03/12/21 16:52 Pulse Ox 94 L 03/12/21 16:52 Intake & Output 03/12/21 03/12/21 03/13/21 06:59 18:59 06:59 Intake Total 240 Output Total 1150 Balance -1150 240 Intake: Oral 240 Output: Urine 1150 Other: Voiding Method Indwelling Catheter Indwelling Catheter # Bowel Movements 1 - Exam PHYSICAL EXAMINATION: GENERAL: Elderly female lying in bed appears to be no acute distress. She is currently being monitored in the ICU. HEENT: Pupils are round and equally reacting to light. EOMI. No scleral icterus. No conjunctival pallor. CARDIOVASCULAR: S1 and S2 heard , soreness in the area of a pacemaker is placed PULMONARY: Bilateral breath sounds are positive. Cracklesin the lower lung bases bilaterally ABDOMEN: Soft, nontender, nondistended, normoactive bowel sounds. No palpable organomegaly. MUSCULOSKELETAL: No joint swelling or deformity. EXTREMITIES: No cyanosis, clubbing, or pedal edema. NEUROLOGICAL: Gross neurological examination did not reveal any focal deficits. SKIN: No rashes. - Labs CBC & Chem 7: 03/11/21 02:54 03/11/21 02:54 Labs: Microbiology - Last 24 Hours (Table) 03/08/21 20:48 Blood Culture - Preliminary Blood No Growth after 72 hours 03/08/21 20:55 Blood Culture - Preliminary Blood No Growth after 72 hours Assessment and Plan Assessment: Generalized fatigue and weakness secondary to COVID-19 infection Complete heart block versus second-degree heart block. Status post permanent pacemaker placement done on 03/10/2021 Acute hypoxic respiratory failure secondary to COVID-19 pneumonia Elevated troponin Hyponatremia Increased inflammatory markers Multiple sclerosis History of depression with anxiety Hypertension STEPHEN: Patient was started on dexamethasone and multivitamin supplements. Cardiology , DR. DANIELA shahid implantation of permanent pacemaker done on 03/10/2021. Post - op repeat CXR showing mild congestion, so she is was given dose of IV Lasix . chest x-ray was also showing right lower lobe infiltrate patient has been started on levofloxacin. We will follow up in inflammatory markers and chest x- ray. Continue to monitor.. Overall prognosis is guarded. Patient's CODE STATUS is DO NOT RESUSCITATE. Further recommendations to follow depending on the progress of the patient. Time with Patient: Greater than 30
[2021-03-13] MEDS: SODIUM CHLORIDE 0.9% 1,000 ML IV SCH ×2 (06:17)
[2021-03-13] MEDS: PANTOPRAZOLE 40 MG TABLET PO SCH (06:33)
[2021-03-13] MEDS: LEVOFLOXACIN 500MG-D5W PMX 500 MG in DEXTROSE/WATER 1 100ML.BAG IVPB SCH (08:21)
[2021-03-13] MEDS: ASPIRIN 81 MG PO SCH (08:21)
[2021-03-13] MEDS: ASCORBIC ACID 500 MG TAB PO SCH (08:21)
[2021-03-13] MEDS: CHOLECALCIFEROL 25 MCG (1000 IU) TABLET PO SCH (08:21)
[2021-03-13] MEDS: METOPROLOL TARTRATE 25 MG TAB PO SCH ×2 (08:21→21:28)
[2021-03-13] MEDS: FLUoxetine HCL 20 MG CAP PO SCH (08:21)
[2021-03-13] MEDS: ZINC SULFATE 220 MG CAP PO SCH (08:21)
[2021-03-13] MEDS: HEPARIN SODIUM,PORCINE/PF 5,000 UNIT/0.5 ML SYRINGE SQ SCH ×2 (08:21→21:29)
[2021-03-13] MEDS: DEXAMETHASONE SOD PHOSPHATE 10 MG/ML 1 ML VIAL IV SCH (08:24)
[2021-03-13 08:38] LABS: African American GFR (CKD) >90 (>60 ml/min/1.73 sqM); Anion Gap 3 mmol/L; Blood Urea Nitrogen 13 mg/dL (7-17); Calcium 7.4 mg/dL (8.4-10.2); Carbon Dioxide 22 mmol/L (22-30); Chloride 107 mmol/L (98-107); Glucose 84 mg/dL (74-99); Non-African American GFR(CKD) >90 (>60 ml/min/1.73 sqM); Potassium 4.1 mmol/L (3.5-5.1); Sodium 132 mmol/L (137-145)
[2021-03-13 08:51] LABS: Basophils % (A) 0 %; Eosinophils % (A) 0 %; HCT 32.7 % (34.0-46.0); HGB 10.9 gm/dL (11.4-16.0); Lymphocytes # (A) 0.4 k/uL (1.0-4.8); Lymphocytes % (A) 4 %; MCHC 33.5 g/dL (31.0-37.0); MCV 92.6 fL (80.0-100.0); Mean Platelet Volume 7.4; Monocytes # (A) 0.7 k/uL (0-1.0); Monocytes % (A) 8 %; Neutrophils % (A) 86 %; Platelet Count 248 k/uL (150-450); RBC 3.53 m/uL (3.80-5.40); RDW 13.4 % (11.5-15.5); WBC 8.2 k/uL (3.8-10.6)
--- NOTE | 2021-03-13 14:23 | P.PN ---
Subjective Progress Note Date: 03/13/21 Principal diagnosis: Acute COVID-19 pneumonia and complete heart block. This is a very pleasant 70-year-old female patient who follows with Dr. Cook as her primary care provider. She has a history of multiple sclerosis, hypertension, depression. She presented to the emergency room yesterday after a 3-4 week history of generalized weakness and fatigue. She received her second dose of the soto virus vaccine approximately at that same time and has not felt well since. She presented to the emergency room with a temperature 102.9. Productive cough of clear sputum. No nausea, vomiting or diarrhea. She does states her appetite has been poor. She states she generally can't swallow well. Feeds herself. She is quite limited mobility fierro. Mainly is from bed to rec liner only at home. She has caregivers that come to the house twice a day. She has a son who lives with her. X-ray does show coarse interstitial markings bilaterally with some mild airspace infiltrate in the left lower lobe. White count 5.1. Hemoglobin 12.2. Platelet count 146. Lymphocytes 0.6. D-dimer 0.29. Sodium 133. Potassium 4.0. Creatinine 0.53. Troponin 0.120. LDH 874. C-reactive protein 6.4. TSH 0.675. Free T4 1 0.28. Soto virus positive. EKG reveals evidence of complete heart block with anterolateral ischemia. Jugular rate mainly in the 40s and low 50s. He was initiated on a dopamine drip at 5 mcg/kg/m. Heparin drip per weight base protocol. 0.9 normal saline at 130 ML's per hour. She received ceftriaxone and azithromycin 1 yesterday. She is seen today in consultation in the intensive care unit. She is currently awake and alert in no acute distress. She denies any worsening shortness of breath, cough or congestion. She denies any chest pain. She expresses desire to be a DO NOT RESUSCITATE/DO NOT INTUBATE CODE STATUS. She also is requesting to be home as soon as possible. She is currently afebrile. Echocardiogram pending. The patient is seen today in 03/10/2021 in follow-up in the intensive care unit. She is currently sitting up in bed. Awake and alert in no acute distress. Currently on 2 L/m per nasal cannula and maintaining O2 saturation in the low 90s. She does desaturate into the 80s once she is off the oxygen. She remains bradycardic in complete heart block alternating with a high degree second-degree block. Heparin drip and dopamine drips are on hold. The plan is for permanent pacemaker implantation later today. She remains on dexamethasone, vitamin supplements. 0.9 normal saline at 50 MLS per hour. Chest x-ray continues to revealed bilateral patchy infiltrates. Blood cultures revealing no growth to date. White count 4.6. Hemoglobin 11.3. Lymphocytes 0.6. Sodium 129. Potassium 4.4. Creatinine 0.41. LDH 868. C-reactive protein 6.8. Echocardiogram reveals mild to moderately impaired left ventricular systolic function with ejection fraction 40-45%. Moderate pulmonary hypertension. Patient was reevaluated today on 03/11/2021, remains in the ICU, she is status post permanent pacemaker implantation by cardiology. Patient is doing fairly well. Remains on 2 L nasal cannula, and her O2 saturation is 93%. Patient is hemodynamically stable. Chest x-ray clearly shows significant right lower lobe infiltrate. Remains on Decadron 6 mg IV push daily. Patient is also on heparin subcu, started the patient on antibiotics in the form of Levaquin today for her right lower lobe pneumonia and she is also on Ancef which was started after pacemaker implantation. She is on the COVID-19 cocktail. Overall the patient seems to be doing fairly well. And I plan to transfer the patient out of the ICU to a cardiac floor today. CBC is relatively normal electroencephalogram normal renal profile is normal, troponin is trending down. LDH is trending down at 868. C-reactive protein is about the same at 6.8. Reevaluated today on 03/12/2021, patient is resting in bed, in no distress, feels much better compared to how she felt upon presentation. Patient is relatively asymptomatic, she is on 3 L nasal cannula with O2 saturation 93%.Remains hemodynamically stable. Remains on Decadron. Remains on subcu heparin and on Levaquin. No major change in the last 24 hours. Patient is basically asymptomatic in spite of her abnormal chest x-ray. Reevaluated today on 03/13/2021, patient is sitting in bed, on 4 L nasal cannula, and her O2 saturations 94%. Patient denies being in any distress, denies any shortness of breath, she has occasional cough, no shortness of breath no chest pain. CBC is relatively normal left lites are normal renal profile is normal chest x-ray from 03/11 showed patchy airspace disease noted bilaterally secondary to COVID-19 pneumonia. Objective - Vital Signs Vital signs: Vital Signs Temp 97.7 F 03/13/21 12:00 Pulse 71 03/13/21 13:41 Resp 18 03/13/21 13:41 BP 157/90 03/13/21 12:00 Pulse Ox 94 L 03/13/21 12:00 Intake & Output 03/12/21 03/13/21 03/13/21 18:59 06:59 18:59 Intake Total 240 120 Output Total 1650 1000 Balance 240 -1650 -880 Intake: Oral 240 120 Output: Urine 1650 1000 Other: Voiding Method Indwelling Catheter Indwelling Catheter Indwelling Catheter # Bowel Movements 1 1 - Exam Physical Exam: Revealed 70-year-old female in no distress, on 4 L nasal cannula. O2 saturation is 94% Head: Atraumatic, normocephalic. HEENT:[Neck is supple.] [No neck masses.] [No thyromegaly.] [No JVD.]EOMI, nonicteric. Chest: [Symmetrical chest expansion, crackles at the bases especially at the rig ht base. No rhonchi and no wheezes. Cardiac Exam: [Normal S1 and S2, no S3 gallop, no murmur.] Abdomen: [Soft, nontender, no megaly, no rebound, no guarding, normal bowel sounds.] Extremities: [No clubbing, no edema, no cyanosis.] Good pulses bilaterally. Musculoskeletal: No deformities normal range of motion. Neurological Exam: Generalized weakness, related to underlying MS, otherwise no focal neurologic deficits. Alert oriented 3. Psychiatric: Normal mood affect and normal mental status examination. Skin: No rashes. - Labs CBC & Chem 7: 03/13/21 07:51 03/13/21 07:51 Labs: Abnormal Lab Results - Last 24 Hours (Table) 03/13/21 03/13/21 Range/Units 07:51 07:51 RBC 3.53 L (3.80-5.40) m/uL Hgb 10.9 L (11.4-16.0) gm/dL Hct 32.7 L (34.0-46.0) % Lymphocytes # 0.4 L (1.0-4.8) k/uL Sodium 132 L (137-145) mmol/L Creatinine 0.47 L (0.52-1.04) mg/dL Calcium 7.4 L (8.4-10.2) mg/dL Microbiology - Last 24 Hours (Table) 03/08/21 20:55 Blood Culture - Preliminary Blood No Growth after 96 hours 03/08/21 20:48 Blood Culture - Preliminary Blood No Growth after 96 hours Assessment and Plan Assessment: Impression: Acute COVID-19 pneumonia with acute hypoxic respiratory failure secondary to COVID-19 pneumonia Complete heart block requiring permanent pacemaker implantation. Acute troponin leak with impaired left ventricular systolic function Elevated inflammatory markers secondary to COVID-19 pneumonia Acute hypovolemic hyponatremia, resolved History of multiple sclerosis with limited mobility. History of depression. Benign essential hypertension. Recommendation: Continue present COVID-19 cocktail. Continue subcu heparin. Continue to monitor inflammatory markers. Continue Levaquin Continue Decadron. Will clear the patient for discharge home on oxygen Will follow on when necessary basis. Has to be cleared by cardiology before discharge. Time with Patient: Less than 30
[2021-03-13] MEDS: ATORVASTATIN 40 MG TAB PO SCH ×2 (21:28→21:33)
[2021-03-13] MEDS: BACLOFEN 10 MG TAB PO PRN (21:28)
[2021-03-13] MEDS: LOSARTAN 50 MG TAB PO SCH (21:28)
[2021-03-14] MEDS: HEPARIN SOD,PORK IN 0.45% NACL 25,000 UNIT in 0.45% NACL 1 250ML.BAG IV SCH (00:40)
[2021-03-14] MEDS: PANTOPRAZOLE 40 MG TABLET PO SCH (06:42)
--- NOTE | 2021-03-14 07:00 | XR ---
EXAMINATION TYPE: Chest x-ray single DATE OF EXAM: 03/14/2021 COMPARISON: 03/11/2020 HISTORY: Shortness of breath TECHNIQUE: Single frontal view of the chest is obtained. FINDINGS: There is interval development of haziness in the right upper lobe representing new focus o f consolidation representing pneumonia. Airspace opacity is seen in the right lower lobe is smaller. Lungs clear. There is bibasilar pleural effusion and subsegmental atelectasis is suspected. Chest wall cardiac pacing device with intact leads are noted. Heart and mediastinum are within normal limits. No pneumothorax. IMPRESSION: Interval development of right upper lobe pneumonia. Right lower lobe pneumonia has slightly improved.
[2021-03-14] MEDS: ASPIRIN 81 MG PO SCH (08:57)
[2021-03-14] MEDS: METOPROLOL TARTRATE 25 MG TAB PO SCH (08:57)
[2021-03-14] MEDS: FLUoxetine HCL 20 MG CAP PO SCH (08:57)
[2021-03-14] MEDS: ASCORBIC ACID 500 MG TAB PO SCH (08:57)
[2021-03-14] MEDS: ZINC SULFATE 220 MG CAP PO SCH (08:57)
[2021-03-14] MEDS: DEXAMETHASONE SOD PHOSPHATE 10 MG/ML 1 ML VIAL IV SCH (08:57)
[2021-03-14] MEDS: CHOLECALCIFEROL 25 MCG (1000 IU) TABLET PO SCH (08:57)
[2021-03-14] MEDS: HEPARIN SODIUM,PORCINE/PF 5,000 UNIT/0.5 ML SYRINGE SQ SCH (08:58)
[2021-03-14] MEDS ORDERED: LEVOFLOXACIN 500 MG TAB PO SCH (09:00)
[2021-03-14 12:41] VITALS: BP 136/86; PULSE 71; RESP 16; TEMP 98.2
--- NOTE | 2021-03-14 13:18 | P.PN ---
Subjective Progress Note Date: 03/13/21 Principal diagnosis: Complete heart block versus second-degree heart block. Status post permanent pacemaker placement done on 03/10/2021 Acute hypoxic respiratory failure secondary to COVID-19 pneumonia Ms. Figueroa is a 70-year-old female with a past medical history of multiple sclerosis, hypertension coming into the hospital with a chief complaint of generalized weakness and fatigue. Patient states that she received her second dose of soto virus vaccine 1 month back and since then she continued to have generalized weakness and fatigue. She thought her symptoms would resolve but progressively worsening that she came into the hospital for further evaluation. Patient denies having any fevers chills or rigors. She complains of cough that is productive in nature with clear sputum. She denies having any abdominal pain nausea vomiting or diarrhea. No change in her sense of taste or smell. Patient denies having any dysuria or hematuria. Patient states that she has been not eating or drinking well for the past 3-4 weeks. Patient mentions that she has caregivers at home and her caregiver was tested positive for soto virus. In the ER at the time of admission patient was found to have a fever of 102.9, heart rate of 48, respiratory rate 20, blood pressure 140/68, saturating at 95% on room air. She had a chest x-ray showing coarse interstitial markings bilateral with left lobe infiltrate. Patient had an EKG showing complete heart block with anterolateral ischemia. So the patient was started on dopamine drip and heparin drip and admitted to the ICU. Patient also received 1 dose of ceftriaxone and Zithromax. She is currently being monitored in the ICU. On 03/10/2021 -patient was seen and examined at the bedside. Patient is in the ICU. She just had pacemaker placement done by Dr. DANIELA Shahid this afternoon. Postprocedure the patient had a chest x-ray showing interval worsening of consolidative opacity. Patient states she does not have any chest pain or palpitations. Complains of mild difficulty in breathing. She complains of generalized weakness. On reviewing her vitals temperature of 97.6, heart rate 84, respiratory rate 20, blood pressure 142/88, saturating at 94% on 2 L of oxygen by nasal cannula. On reviewing the labs from this morning white count of four-point, hemoglobin 9.3, platelets 103. Sodium 129, potassium 4.4, chloride 105, bicarb 19, BUN 13, creatinine 0.41 On 03/11/2021 - patient is seen and examined at bedside in the ICU. Patient had permanent pacemaker implantation by cardiology yesterday. Patient complains of pain in the area where she had the pacemaker placed. Patient denies having any chest pain or palpitations. She denies having any difficulty in breathing. Patient denies having abdominal pain nausea vomiting or diarrhea. She states that her lower extremity spasms are bothering her. On reviewing the vitals temperature 98.2, heart rate 97, respiratory rate 23, blood pressure 132/79, saturating at 90% on 2 L of nasal cannula. On reviewing the labs white count of 4.6, hemoglobin 11.7, platelets 151. Sodium 132, potassium 4.7, chloride 106, bicarbonate drip, BUN 15, creatinine 0.4. 03/12/2021 Patient is currently lying in the bed comfortably. Status post dual-chamber pacemaker placement on 03/10/2021. Requiring oxygen at 3 L via nasal cannula. Continued on dexamethasone and subcu heparin and Levaquin. Pulmonary and cardiology is on board. Laboratory tests reviewed. Anticipate discharge in the next 24 hours with more clinical improvement. 03/13/2021 Patient is resting in the bed comfortably. Awake alert and oriented 3. Currently requiring 3-4 L of oxygen via nasal cannula. Patient is being continued on dexamethasone and subcu heparin and Levaquin for possible pneumonia. Heart rate is stable. No complaints of headache or dizziness or lightheadedness. No chest pain or shortness of breath. Home oxygen is being arranged. Anticipate discharge once the oxygen tank is delivered. Current medications reviewed. Objective - Vital Signs Vital signs: Vital Signs Temp 97.7 F 03/13/21 16:22 Pulse 71 03/13/21 17:00 Resp 18 03/13/21 17:00 BP 149/94 03/13/21 16:22 Pulse Ox 93 L 03/13/21 17:00 Intake & Output 03/13/21 03/13/21 03/14/21 06:59 18:59 06:59 Intake Total 320 Output Total 1650 1000 Balance -1650 -680 Intake: Oral 320 Output: Urine 1650 1000 Other: Voiding Method Indwelling Catheter Indwelling Catheter # Bowel Movements 2 - Exam PHYSICAL EXAMINATION: GENERAL: Elderly female lying in bed appears to be no acute distress. She is currently being monitored in the ICU. HEENT: Pupils are round and equally reacting to light. EOMI. No scleral icterus. No conjunctival pallor. CARDIOVASCULAR: S1 and S2 heard , soreness in the area of a pacemaker is placed PULMONARY: Bilateral breath sounds are positive. Cracklesin the lower lung bases bilaterally ABDOMEN: Soft, nontender, nondistended, normoactive bowel sounds. No palpable organomegaly. MUSCULOSKELETAL: No joint swelling or deformity. EXTREMITIES: No cyanosis, clubbing, or pedal edema. NEUROLOGICAL: Gross neurological examination did not reveal any focal deficits. SKIN: No rashes. - Labs CBC & Chem 7: 03/13/21 07:51 03/13/21 07:51 Labs: Abnormal Lab Results - Last 24 Hours (Table) 03/13/21 03/13/21 Range/Units 07:51 07:51 RBC 3.53 L (3.80-5.40) m/uL Hgb 10.9 L (11.4-16.0) gm/dL Hct 32.7 L (34.0-46.0) % Lymphocytes # 0.4 L (1.0-4.8) k/uL Sodium 132 L (137-145) mmol/L Creatinine 0.47 L (0.52-1.04) mg/dL Calcium 7.4 L (8.4-10.2) mg/dL Microbiology - Last 24 Hours (Table) 03/08/21 20:55 Blood Culture - Preliminary Blood No Growth after 96 hours 03/08/21 20:48 Blood Culture - Preliminary Blood No Growth after 96 hours Assessment and Plan Assessment: Generalized fatigue and weakness secondary to COVID-19 infection Complete heart block versus second-degree heart block. Status post permanent pacemaker placement done on 03/10/2021 Acute hypoxic respiratory failure secondary to COVID-19 pneumonia Elevated troponin Hyponatremia Increased inflammatory markers Multiple sclerosis History of depression with anxiety Hypertension STEPHEN: Patient was started on dexamethasone and multivitamin supplements. Cardiology , DR. DANIELA shahid implantation of permanent pacemaker done on 03/10/2021. Post - op repeat CXR showing mild congestion, so she is was given dose of IV Lasix . chest x-ray was also showing right lower lobe infiltrate patient has been started on levofloxacin. Continue to monitor.. Overall prognosis is guarded. Patient's CODE STATUS is DO NOT RESUSCITATE. Further recommendations to follow depending on the progress of the patient. Anticipate discharge soon. Time with Patient: Greater than 30
== END 2021-03-14 15:47 | disposition home health service (06) | DRG 242 ==
LOC: EC 18:00 → 2SICU 20:45 → 3SCARD 03-11 16:01
PROVIDERS: ADMIT Internal Medicine; ATTEND Internal Medicine
PROC: 02H63JZ Insertion of Pacemaker Lead into Right Atrium, Percutaneous Approach (ICD-10-PCS; 2021-03-10)
PROC: 02HK3JZ Insertion of Pacemaker Lead into Right Ventricle, Percutaneous Approach (ICD-10-PCS; 2021-03-10)
PROC: 5A1223Z Performance of Cardiac Pacing, Continuous (ICD-10-PCS; 2021-03-10)
PROC: 0JH606Z Insertion of Pacemaker, Dual Chamber into Chest Subcutaneous Tissue and Fascia, Open Approach (ICD-10-PCS; principal; 2021-03-10 12:35)
DX: I44.2 Atrioventricular block, complete (principal); U07.1 COVID-19; J12.82 Pneumonia due to coronavirus disease 2019; J96.01 Acute respiratory failure with hypoxia; E87.1 Hypo-osmolality and hyponatremia; I31.3 Pericardial effusion (noninflammatory); G35 Multiple sclerosis; I27.20 Pulmonary hypertension, unspecified; I95.9 Hypotension, unspecified; Z66 Do not resuscitate; E86.1 Hypovolemia; R00.1 Bradycardia, unspecified; E86.0 Dehydration; R63.0 Anorexia; I10 Essential (primary) hypertension; F41.8 Other specified anxiety disorders; Z79.899 Other long term (current) drug therapy; F32.9 Major depressive disorder, single episode, unspecified; Z79.82 Long term (current) use of aspirin; G25.81 Restless legs syndrome; B33.24 Viral cardiomyopathy
CPT/HCPCS: 33208; 36415; 71045; 71046; 80048; 80053; 81001; 83605; 83615; 83735; 84145; 84439; 84443; 84484; 85025; 85379; 85610; 85730; 86140; 87040; 87636; 93005; 93306; 93308; 94760; 96360; 99291

== ENCOUNTER 2022-02-05 12:10 | Emergency (ER) | payer MEDICARE ==
[2022-02-05 12:20] VITALS: TEMP 95.9
--- NOTE | 2022-02-05 12:56 | ED ---
General Adult HPI - General Chief complaint: Shortness of Breath Stated complaint: KIKI Time Seen by Provider: 02/05/22 12:22 Source: patient, RN notes reviewed, old records reviewed Mode of arrival: wheelchair - History of Present Illness Initial comments: 71-year-old female presenting with dyspnea, increased weakness, poor appetite. Patient was seen at outside hospital about one week ago. They had recommended admission over the patient declined at that time. She has steadily worsened. She is unable to stand. She has a history of MS. She is complaining of dyspnea. No reported fever. No reported vomiting. She has bilateral lower extremity swelling and cyanosis which the patient and family member reported as chronic. - Related Data Home Medications Medication Instructions Recorded Confirmed FLUoxetine HCL [PROzac] 20 mg PO DAILY 07/12/18 02/05/22 Polyethylene Glycol 3350 [Clearlax] 17 gm PO DAILY PRN 07/12/18 02/05/22 Baclofen 20 mg PO HS 03/08/21 02/05/22 Baclofen [Lioresal] 10 mg PO BID@0700,1200 03/08/21 02/05/22 Cholecalciferol (Vitamin D3) 125 mcg PO MOWEFR 03/08/21 02/05/22 [Vitamin D3 (5000 Iu)] Dextroamphetamine/Amphetamine 10 mg PO DAILY PRN 03/08/21 02/05/22 [Adderall] Docusate [Colace] 100 mg PO DAILY 03/08/21 02/05/22 rOPINIRole HCL [Requip] 0.25 - 0.5 mg PO HS 03/08/21 02/05/22 Albuterol Inhaler [Ventolin Hfa 2 puff INHALATION RT-Q4H PRN 02/05/22 02/05/22 Inhaler] Albuterol Nebulized [Ventolin 2.5 mg INHALATION RT-QID 02/05/22 02/05/22 Nebulized] Biotin Forte W/Zinc 3 mg PO DAILY 02/05/22 02/05/22 Furosemide [Lasix] 40 mg PO DAILY 02/05/22 02/05/22 Ipratropium/Albuterol Sulfate 1 puff INHALATION RT-BID 02/05/22 02/05/22 [Combivent Respimat Inhaler] Mirabegron [Myrbetriq] 25 mg PO DAILY 02/05/22 02/05/22 Orevus Infusion 1 dose IV Q180D 02/05/22 02/05/22 Potassium Chloride ER [K-Dur 10] 20 meq PO DAILY 02/05/22 02/05/22 Allergies Allergy/AdvReac Type Severity Reaction Status Date / Time No Known Allergies Allergy Verified 02/05/22 14:38 Review of Systems ROS Statement: Those systems with pertinent positive or pertinent negative responses have been documented in the HPI. ROS Other: All systems not noted in ROS Statement are negative. Past Medical History Additional Past Medical History / Comment(s): MS, Pt. states she broke her L arm approximately 2 yrs ago R/T fall and broke L foot approximately R/T 5 years ago History of Any Multi-Drug Resistant Organisms: None Reported Past Surgical History: No Surgical Hx Reported Past Anesthesia/Blood Transfusion Reactions: No Reported Reaction Past Psychological History: No Psychological Hx Reported Smoking Status: Never smoker Past Alcohol Use History: None Reported Past Drug Use History: None Reported General Exam General appearance: lethargic, in distress Head exam: Present: atraumatic, normocephalic Eye exam: Present: normal appearance, PERRL ENT exam: Present: mucous membranes dry Neck exam: Present: normal inspection. Absent: tenderness, meningismus Respiratory exam: Present: respiratory distress (Neck with good air entry), rales. Absent: rhonchi Cardiovascular Exam: Present: regular rate, normal rhythm GI/Abdominal exam: Present: soft. Absent: distended, tenderness, guarding Extremities exam: Present: pedal edema (Bilateral cyanosis, palpable pulses are present on both feet, dorsalis pedis) Neurological exam: Present: alert, oriented X3, CN II-XII intact. Absent: motor sensory deficit Skin exam: Present: warm, cyanosis (Feet ) Course Vital Signs 02/05/22 02/05/22 02/05/22 12:16 12:24 18:41 Temperature 95.9 F L Pulse Rate 55 L 56 L Respiratory 28 H 28 H 20 Rate Blood Pressure 94/66 110/73 O2 Sat by Pulse 88 L 95 Oximetry 02/05/22 02/05/22 20:09 20:17 Temperature Pulse Rate 61 61 Respiratory 28 H 28 H Rate Blood Pressure 78/52 119/58 O2 Sat by Pulse 90 L 90 L Oximetry EKG Findings - EKG Comments: EKG Findings:: EKG: Ventricular paced rhythm significant artifact limiting exam, rate of 73, QRS duration 186, QTC 504 frequent PVC. Medical Decision Making - Medical Decision Making 71-year-old female presenting in extremis. Patient is to Neck, hypoxic. She has significant peripheral cyanosis and edema. She has palpable pulses in the feet although the degree of cyanosis his profound. Family reports this is chronic. Patient is able to give history but she is somewhat lethargic. She has no abdominal pain. No reported fever. Patient is in a paced rhythm. She has bilateral Rales on lung auscultation. Chest x-ray shows pulmonary edema, cardiomegaly and bilateral effusions. At the time of initial evaluation I did discuss CODE STATUS and the patient is a DO NOT RESUSCITATE DO NOT INTUBATE. She is initially agreeable to medical management. She initially declines invasive procedures. Workup and treatment is initiated. She has a leukocytosis of 13.4. She has a hemoglobin of 15.4. INR is 1.3. She has a CO2 of 15 and a significant lactic acidosis at 8.2. She has an elevated bilirubin at 3.7, elevated AST and ALT. Her troponin is negative. She does not have any abdominal tenderness. Ultrasound is performed to rule out liver and gallbladder pathology. She has pericholecystic fluid as well as rojelio lithiasis. There is concern for acute cholecystitis and possible cholangitis. I did discuss the case with Dr. Leyva, who recommends transfer at this time. We do not have GI coverage. There is delay in transfer because the patient is initially uncertain if she wants to be transferred. I discussed her condition with her son at length. I again discussed her laboratory findings and my concerns with the patient and ultimately she agrees to transfer. I attempted to transfer this patient to [facility] and was unsuccessful secondary to fall ICU. I discussed case with Juan Antonio Ann who is able to accept this patient in transfer. Dr. Gaytan. She has been given IV antibiotics including Zosyn and vancomycin. IV steroids, Solu-Medrol, initial fluid bolus followed by vasopressors. I feel her presentation is consistent with the combination of both septic and cardiogenic shock. Her prognosis is poor and I did discuss this with the patient and her family members. During her ER stay she does require respiratory support with BiPAP, again she is a DO NOT INTUBATE. - Lab Data Result diagrams: 02/05/22 13:11 02/05/22 13:11 Lab Results 02/05/22 02/05/22 02/05/22 Range/Units 13:11 13:11 13:11 WBC 13.4 H (3.8-10.6) k/uL RBC 4.92 (3.80-5.40) m/uL Hgb 15.4 (11.4-16.0) gm/dL Hct 48.1 H (34.0-46.0) % MCV 97.7 (80.0-100.0) fL MCH 31.2 (25.0-35.0) pg MCHC 32.0 (31.0-37.0) g/dL RDW 15.6 H (11.5-15.5) % Plt Count 221 (150-450) k/uL MPV 8.6 Neutrophils % 80 % Lymphocytes % 8 % Monocytes % 8 % Eosinophils % 1 % Basophils % 0 % Neutrophils # 10.7 H (1.3-7.7) k/uL Lymphocytes # 1.1 (1.0-4.8) k/uL Monocytes # 1.0 (0-1.0) k/uL Eosinophils # 0.1 (0-0.7) k/uL Basophils # 0.0 (0-0.2) k/uL Hypochromasia Moderate Macrocytosis Slight PT 13.9 H (9.0-12.0) sec INR 1.3 H (<1.2) APTT 23.7 (22.0-30.0) sec Sodium 135 L (137-145) mmol/L Potassium 4.9 (3.5-5.1) mmol/L Chloride 102 (98-107) mmol/L Carbon Dioxide 15 L (22-30) mmol/L Anion Gap 18 mmol/L BUN 29 H (7-17) mg/dL Creatinine 0.95 (0.52-1.04) mg/dL Est GFR (CKD-EPI)AfAm 70 (>60 ml/min/1.73 sqM) Est GFR (CKD-EPI)NonAf 60 (>60 ml/min/1.73 sqM) Glucose 155 H (74-99) mg/dL Lactic Ac Sepsis Rflx Plasma Lactic Acid Carlos (0.7-2.0) mmol/L Calcium 9.4 (8.4-10.2) mg/dL Magnesium 2.2 (1.6-2.3) mg/dL Total Bilirubin 3.7 H (0.2-1.3) mg/dL AST 250 H (14-36) U/L ALT 162 H (4-34) U/L Alkaline Phosphatase 249 H (38-126) U/L Troponin I (0.000-0.034) ng/mL NT-Pro-B Natriuret Pep pg/mL Total Protein 6.7 (6.3-8.2) g/dL Albumin 4.0 (3.5-5.0) g/dL Urine Color Urine Appearance (Clear) Urine pH (5.0-8.0) Ur Specific [place] (1.001-1.035) Urine Protein (Negative) Urine Glucose (UA) (Negative) Urine Ketones (Negative) Urine Blood (Negative) Urine Nitrite (Negative) Urine Bilirubin (Negative) Urine Urobilinogen (<2.0) mg/dL Ur Leukocyte Esterase (Negative) Urine RBC (0-5) /hpf Urine WBC (0-5) /hpf Urine Bacteria (None) /hpf Hyaline Casts (0-2) /lpf Urine Mucus (None) /hpf 02/05/22 02/05/22 02/05/22 Range/Units 13:11 13:11 13:11 WBC (3.8-10.6) k/uL RBC (3.80-5.40) m/uL Hgb (11.4-16.0) gm/dL Hct (34.0-46.0) % MCV (80.0-100.0) fL MCH (25.0-35.0) pg MCHC (31.0-37.0) g/dL RDW (11.5-15.5) % Plt Count (150-450) k/uL MPV Neutrophils % % Lymphocytes % % Monocytes % % Eosinophils % % Basophils % % Neutrophils # (1.3-7.7) k/uL Lymphocytes # (1.0-4.8) k/uL Monocytes # (0-1.0) k/uL Eosinophils # (0-0.7) k/uL Basophils # (0-0.2) k/uL Hypochromasia Macrocytosis PT (9.0-12.0) sec INR (<1.2) APTT (22.0-30.0) sec Sodium (137-145) mmol/L Potassium (3.5-5.1) mmol/L Chloride (98-107) mmol/L Carbon Dioxide (22-30) mmol/L Anion Gap mmol/L BUN (7-17) mg/dL Creatinine (0.52-1.04) mg/dL Est GFR (CKD-EPI)AfAm (>60 ml/min/1.73 sqM) Est GFR (CKD-EPI)NonAf (>60 ml/min/1.73 sqM) Glucose (74-99) mg/dL Lactic Ac Sepsis Rflx Plasma Lactic Acid Carlos 8.2 H* (0.7-2.0) mmol/L Calcium (8.4-10.2) mg/dL Magnesium (1.6-2.3) mg/dL Total Bilirubin (0.2-1.3) mg/dL AST (14-36) U/L ALT (4-34) U/L Alkaline Phosphatase (38-126) U/L Troponin I <0.012 (0.000-0.034) ng/mL NT-Pro-B Natriuret Pep 86331 pg/mL Total Protein (6.3-8.2) g/dL Albumin (3.5-5.0) g/dL Urine Color Urine Appearance (Clear) Urine pH (5.0-8.0) Ur Specific [place] (1.001-1.035) Urine Protein (Negative) Urine Glucose (UA) (Negative) Urine Ketones (Negative) Urine Blood (Negative) Urine Nitrite (Negative) Urine Bilirubin (Negative) Urine Urobilinogen (<2.0) mg/dL Ur Leukocyte Esterase (Negative) Urine RBC (0-5) /hpf Urine WBC (0-5) /hpf Urine Bacteria (None) /hpf Hyaline Casts (0-2) /lpf Urine Mucus (None) /hpf 02/05/22 02/05/22 02/05/22 Range/Units 14:22 16:47 17:39 WBC (3.8-10.6) k/uL RBC (3.80-5.40) m/uL Hgb (11.4-16.0) gm/dL Hct (34.0-46.0) % MCV (80.0-100.0) fL MCH (25.0-35.0) pg MCHC (31.0-37.0) g/dL RDW (11.5-15.5) % Plt Count (150-450) k/uL MPV Neutrophils % % Lymphocytes % % Monocytes % % Eosinophils % % Basophils % % Neutrophils # (1.3-7.7) k/uL Lymphocytes # (1.0-4.8) k/uL Monocytes # (0-1.0) k/uL Eosinophils # (0-0.7) k/uL Basophils # (0-0.2) k/uL Hypochromasia Macrocytosis PT (9.0-12.0) sec INR (<1.2) APTT (22.0-30.0) sec Sodium (137-145) mmol/L Potassium (3.5-5.1) mmol/L Chloride (98-107) mmol/L Carbon Dioxide (22-30) mmol/L Anion Gap mmol/L BUN (7-17) mg/dL Creatinine (0.52-1.04) mg/dL Est GFR (CKD-EPI)AfAm (>60 ml/min/1.73 sqM) Est GFR (CKD-EPI)NonAf (>60 ml/min/1.73 sqM) Glucose (74-99) mg/dL Lactic Ac Sepsis Rflx Y Y Plasma Lactic Acid Carlos 7.5 H* (0.7-2.0) mmol/L Calcium (8.4-10.2) mg/dL Magnesium (1.6-2.3) mg/dL Total Bilirubin (0.2-1.3) mg/dL AST (14-36) U/L ALT (4-34) U/L Alkaline Phosphatase (38-126) U/L Troponin I (0.000-0.034) ng/mL NT-Pro-B Natriuret Pep pg/mL Total Protein (6.3-8.2) g/dL Albumin (3.5-5.0) g/dL Urine Color Urine Appearance (Clear) Urine pH (5.0-8.0) Ur Specific [place] (1.001-1.035) Urine Protein (Negative) Urine Glucose (UA) (Negative) Urine Ketones (Negative) Urine Blood (Negative) Urine Nitrite (Negative) Urine Bilirubin (Negative) Urine Urobilinogen (<2.0) mg/dL Ur Leukocyte Esterase (Negative) Urine RBC (0-5) /hpf Urine WBC (0-5) /hpf Urine Bacteria (None) /hpf Hyaline Casts (0-2) /lpf Urine Mucus (None) /hpf 02/05/22 02/05/22 Range/Units 19:30 19:48 WBC (3.8-10.6) k/uL RBC (3.80-5.40) m/uL Hgb (11.4-16.0) gm/dL Hct (34.0-46.0) % MCV (80.0-100.0) fL MCH (25.0-35.0) pg MCHC (31.0-37.0) g/dL RDW (11.5-15.5) % Plt Count (150-450) k/uL MPV Neutrophils % % Lymphocytes % % Monocytes % % Eosinophils % % Basophils % % Neutrophils # (1.3-7.7) k/uL Lymphocytes # (1.0-4.8) k/uL Monocytes # (0-1.0) k/uL Eosinophils # (0-0.7) k/uL Basophils # (0-0.2) k/uL Hypochromasia Macrocytosis PT (9.0-12.0) sec INR (<1.2) APTT (22.0-30.0) sec Sodium (137-145) mmol/L Potassium (3.5-5.1) mmol/L Chloride (98-107) mmol/L Carbon Dioxide (22-30) mmol/L Anion Gap mmol/L BUN (7-17) mg/dL Creatinine (0.52-1.04) mg/dL Est GFR (CKD-EPI)AfAm (>60 ml/min/1.73 sqM) Est GFR (CKD-EPI)NonAf (>60 ml/min/1.73 sqM) Glucose (74-99) mg/dL Lactic Ac Sepsis Rflx Plasma Lactic Acid Carlos 7.6 H* (0.7-2.0) mmol/L Calcium (8.4-10.2) mg/dL Magnesium (1.6-2.3) mg/dL Total Bilirubin (0.2-1.3) mg/dL AST (14-36) U/L ALT (4-34) U/L Alkaline Phosphatase (38-126) U/L Troponin I (0.000-0.034) ng/mL NT-Pro-B Natriuret Pep pg/mL Total Protein (6.3-8.2) g/dL Albumin (3.5-5.0) g/dL Urine Color Yellow Urine Appearance Clear (Clear) Urine pH 5.5 (5.0-8.0) Ur Specific [place] 1.019 (1.001-1.035) Urine Protein 1+ H (Negative) Urine Glucose (UA) Negative (Negative) Urine Ketones Negative (Negative) Urine Blood Negative (Negative) Urine Nitrite Negative (Negative) Urine Bilirubin Negative (Negative) Urine Urobilinogen <2.0 (<2.0) mg/dL Ur Leukocyte Esterase Large H (Negative) Urine RBC 4 (0-5) /hpf Urine WBC 73 H (0-5) /hpf Urine Bacteria Rare H (None) /hpf Hyaline Casts 3 H (0-2) /lpf Urine Mucus Rare H (None) /hpf Critical Care Time Critical Care Time: Yes Total Critical Care Time: 95 Disposition Clinical Impression: Respiratory failure, Do not resuscitate, Cardiogenic shock, Septic shock, Hyperbilirubinemia Disposition: OTHER INSTITUTION NOT DEFINED Condition: Serious Is patient prescribed a controlled substance at d/c from ED?: No Referrals: Rome Cook DO [Primary Care Provider] - 1-2 days - Out of Hospital Transfer - Req. Specs Out of Hospital Transfer - Requested Specifics: Other Emergency Center (Transferred to [facility])
--- NOTE | 2022-02-05 13:48 | XR ---
EXAMINATION TYPE: XR chest 2V DATE OF EXAM: 02/05/2022 COMPARISON: Chest x-ray March 14, 2021 HISTORY: SOB. TECHNIQUE: Frontal and lateral views of the chest are obtained. FINDINGS: There is cardiomegaly with dual lead pacemaker. There are small bilateral pleural effusion s on current study and bibasilar opacities favoring associated compressive atelectasis. The osseous s tructures are intact. No pneumothorax seen bilaterally. IMPRESSION: Findings consistent with CHF exacerbation as there is cardiomegaly with small bilateral pleural effusions. Correlate clinically.
[2022-02-05 14:03] LABS: Calcium 9.4 mg/dL (8.4-10.2); Magnesium 2.2 mg/dL (1.6-2.3); Potassium 4.9 mmol/L (3.5-5.1); Total Bilirubin 3.7 mg/dL (0.2-1.3); Total Protein 6.7 g/dL (6.3-8.2)
[2022-02-05 14:16] LABS: Basophils % (A) 0 %; Eosinophils # (A) 0.1 k/uL (0-0.7); Eosinophils % (A) 1 %; HCT 48.1 % (34.0-46.0); HGB 15.4 gm/dL (11.4-16.0); Hypochromasia Moderate; Lymphocytes # (A) 1.1 k/uL (1.0-4.8); Lymphocytes % (A) 8 %; MCH 31.2 pg (25.0-35.0); MCV 97.7 fL (80.0-100.0); Macrocytosis Slight; Mean Platelet Volume 8.6; Monocytes % (A) 8 %; Neutrophils # (A) 10.7 k/uL (1.3-7.7); Neutrophils % (A) 80 %; Platelet Count 221 k/uL (150-450); RBC 4.92 m/uL (3.80-5.40); RDW 15.6 % (11.5-15.5); WBC 13.4 k/uL (3.8-10.6)
[2022-02-05] MEDS ORDERED: SODIUM CHLORIDE 0.9% 1,000 ML IV ONE (14:29)
[2022-02-05] MEDS ORDERED: PIPERACILLIN-TAZOBACTAM 3.375 GM in SODIUM CHLORIDE 0.9% 100 ML IVPB STA (14:30)
[2022-02-05] MEDS ORDERED: SODIUM CHLORIDE 0.9% 1,000 ML IV SCH (14:30)
[2022-02-05 14:37] LABS: INR 1.3 (<1.2); Partial Thromboplastin Time 23.7 sec (22.0-30.0)
[2022-02-05 14:38] LABS: Prothrombin Time 13.9 sec (9.0-12.0)
[2022-02-05] MEDS ORDERED: NOREPINEPHRINE 32 MG in SODIUM CHLORIDE 0.9% 218 ML IV ONE (15:09)
[2022-02-05] MEDS ORDERED: FUROSEMIDE 10 MG/ML 4 ML VIAL IV STA (15:09)
[2022-02-05] MEDS ORDERED: MORPHINE SULFATE 2 MG/ML SYRINGE IVP STA (15:21)
--- NOTE | 2022-02-05 16:45 | US ---
EXAMINATION TYPE: US venous doppler duplex LE BI DATE OF EXAM: 02/05/2022 4:29 PM COMPARISON: Prior bilateral ultrasound April 02, 2018 CLINICAL HISTORY: swelling. Bilateral black feet. Patient has MS and unable to move legs. Patient on breathing machine. SIDE PERFORMED: Bilateral TECHNIQUE: The lower extremity deep venous system is examined utilizing real time linear array sonog johnson with graded compression, doppler sonography and color-flow sonography. VESSELS IMAGED: Common Femoral Vein Deep Femoral Vein Greater Saphenous Vein * Femoral Vein Popliteal Vein Small Saphenous Vein * Proximal Calf Veins- not well seen (* superficial vessels) Right Leg: Negative for DVT Left Leg: Negative for DVT Grayscale, color doppler, spectral doppler imaging performed of the deep veins of the bilateral lower extremities. There is normal flow, compressibility, vascular waveforms. IMPRESSION: No ultrasound evidence for acute DVT in either lower extremity. No significant change fr om prior.
--- NOTE | 2022-02-05 16:46 | US ---
EXAMINATION TYPE: US gallbladder DATE OF EXAM: 02/05/2022 COMPARISON: NONE CLINICAL HISTORY: Hyperbilirubinemia. abn labs. Patient has MS. Patient on breathing machine- LLD i mages not taken EXAM MEASUREMENTS: Liver Length: 14.5 cm Gallbladder Wall: 0.4 cm CBD: 0.3 cm Right Kidney: 9.1 x 5.4 x 4.5 cm Pancreas: wnl Liver: wnl Gallbladder: Limited visualization. Multiple stones. Fluid seen adjacent to GB. LLD images not ta lelia. Evidence for sonographic Piper's sign: neg CBD: wnl Right Kidney: No hydronephrosis or masses seen Visualized portion of pancreas is unremarkable. Visualized liver shows no worrisome mass or ductal di latation. Gallbladder shows multiple small mobile shadowing gallstones. There is adjacent fluid prese nt. No right-sided hydronephrosis. IMPRESSION: Multiple gallstones with adjacent pericholecystic fluid raises concern for acute cholecys titis. Correlate clinically.
[2022-02-05] MEDS ORDERED: VANCOMYCIN 1,250 MG in SODIUM CHLORIDE 0.9% 250 ML IVPB STA (18:31)
[2022-02-05] MEDS ORDERED: methylPREDNISolone SOD SUCCI 125 MG/2 ML VIAL IV STA (18:32)
[2022-02-05 19:59] LABS: Appearance,Urine Clear (Clear); Bacteria,Urine Rare /hpf; Bilirubin,Urine Negative (Negative); Blood,Urine Negative (Negative); Color,Urine Yellow; Glucose,Urine (UA) Negative (Negative); Hyaline Casts,Urine 3 /lpf (0-2); Ketones,Urine Negative (Negative); Leukocyte Esterase,Urine Large (Negative); Mucus,Urine Rare /hpf; Nitrite,Urine Negative (Negative); PH, Urine 5.5 (5.0-8.0); Protein,Urine 1+ (Negative); RBC,Urine 4 /hpf (0-5); Specific Gravity,Urine 1.019 (1.001-1.035); Urobilinogen,Urine <2.0 mg/dL (<2.0); WBC,Urine 73 /hpf (0-5)
[2022-02-05 20:12] VITALS: PULSE 61; RESP 28
[2022-02-05 20:18] VITALS: BP 119/58
== END 2022-02-05 21:03 | disposition other institution (70) ==
LOC: EC 12:10
DX: J96.90 Respiratory failure, unspecified, unspecified whether with hypoxia or hypercapnia (principal); A41.9 Sepsis, unspecified organism; R65.21 Severe sepsis with septic shock; R57.0 Cardiogenic shock; E80.6 Other disorders of bilirubin metabolism; K80.20 Calculus of gallbladder without cholecystitis without obstruction; Z66 Do not resuscitate
CPT/HCPCS: 36415; 94660; 93005; 83880; 80053; 83605; 83735; 84484; 85025; 85610; 85730; 81001; 87040; 87086; 71046; 76705; 93970; 99291; 99292; 96365; 96366 ×4; 96375 ×5; 96361; J2543; J3370; J1940; J2930; J2270